=== PATIENT | male | born 1960 | race Caucasian/White ===

== ENCOUNTER → 2018-05-27 13:23 | Outpatient (CLI) | payer MEDICARE | END | disposition home or self-care (01) | LOC: D.MRI 13:23 | DX: M54.5 Low back pain (principal) ==

== ENCOUNTER → 2018-07-01 09:20 | Outpatient (CLI) | payer MEDICARE | END | disposition home or self-care (01) | LOC: D.US 09:20 | DX: E03.9 Hypothyroidism, unspecified (principal) ==

== ENCOUNTER → 2018-08-19 09:20 | Outpatient (CLI) | payer MEDICARE | END | disposition home or self-care (01) | LOC: D.US 08-13 11:30 | DX: I12.9 Hypertensive chronic kidney disease with stage 1 through stage 4 chronic kidney disease, or unspecified chronic kidney disease (principal); N18.3 Chronic kidney disease, stage 3 (moderate); I48.2 Chronic atrial fibrillation; Z68.31 Body mass index [BMI] 31.0-31.9, adult ==

== ENCOUNTER → 2019-05-09 12:44 | Outpatient (CLI) | payer MEDICARE ==
--- NOTE | 2019-05-12 15:03 | EC ---
PATIENT:BETHEL PENNINGTON DATE OF SERVICE: 05/09/19 SEX: M MEDICAL RECORD: [id number] DATE OF : 56 [facility] AGE OF PATIENT: 58 ADMISSION DATE: 05/09/19 REFERRING PHYSICIAN: INTERPRETING PHYSICIAN: SHAHID MEDINA MD ECHOCARDIOGRAM REPORT ECHO CHARGES 4 ECHO COMPLETE Date: 05/09/19 CLINICAL DIAGNOSIS: H/O A-FIB/HTN ECHOCARDIOGRAPHIC MEASUREMENTS (adult normal given) AC root (d.<3.7cm) 3.0 cm LV Septum d (<1.2 cm> 1.1 cm Valve Excursion 1.9 cm LV Septum (systole) 1.6 cm Left Atria (s.<4.0cm> 4.4 cm LVPW d(<1.2cm) 1.2 cm RV (d.<2.3cm) 2.6 cm LVPW (sytole) 1.7 cm LV diastole(<5.6CM) 5.0 cm MV E-F(>70mm/sec) cm LV systole 2.8 cm LVOT Diameter 1.9 cm MV exc.(>10mm) cm Est.ejection fraction (50-75%) % DOPPLER: LVIT cm/sec A 43.0 cm/sec E 63.0 cm/sec LA cm/sec RVSP 17.4 mmHg LVOT 112 cm/sec AOP1/2T m/s Asc. Ao 115 cm/sec RVOT 57.0 cm/sec RA cm/sec PA 100 cm/sec AV Gradient Peak 5.3 mmHg AV Mean 2.5 mmHg AV Area 2.8 cm MV Gradient Peak 1.9 mmHg MV Mean 0.51 mmHg MV Area cm COMMENTS: OP - HC Compensator Worker: 1 GRAHAM HAJA [place] Seamer: 3 Dr. Paris TAPE# PACS Pericardial Effusion N DATE OF SERVICE: Adequate 2D, color flow, spectral Doppler, and M-Mode. No LVH. LV internal dimension is normal. Wall motion is normal. EF is greater than or equal to 55%. Aortic valve is tricuspid. No evidence of stenosis by Doppler interrogation. Left atrium mildly dilated at 4.4 cm. Mitral valve shows no prolapse. Trace MR. Right-sided chambers are grossly normal. Trace TR. TRANSINT:[id number] Voice Confirmation ID: [id number] DOCUMENT ID: [id number] ECHOCARDIOGRAM REPORT [id number] BETHEL PENNINGTON,SHAHID Guerrero MD at 1503 CC: [id number] DICTATION DATE: 05/12/19 1246 TRAINING AND DEVELOPMENT COORDINATOR: 05/12/19 1259 [facility]P CLI 05/09/19 [place] [id number] [place] [id number]
== END | disposition home or self-care (01) ==
LOC: D.HCCARDIO 12:44
PROVIDERS: ATTEND Internal Medicine Interventional Cardiology
DX: I48.91 Unspecified atrial fibrillation (principal)

== ENCOUNTER → 2019-12-04 09:28 | Outpatient (CLI) | payer MEDICARE ==
--- NOTE | ~2019-12-04 | ST ---
PATIENT:BETHEL PENNINGTON MEDICAL RECORD: [id number] SEX: M LOCATION:[facility] ORDER #: ADMISSION DATE: 12/04/19 AGE OF PATIENT: 59 REFERRING PHYSICIAN: INTERPRETING PHYSICIAN: LLOYD MELCHOR MD DATE OF SERVICE: 12/04/2019 PROCEDURE: Nuclear stress test. INDICATION: Angina, hypertension, hyperlipidemia, atrial fibrillation. TECHNIQUE: He was exercised on standard Lexiscan protocol with 33 mCi of sestamibi injected at peak stress, 11 mCi used previously for rest images. FINDINGS: Gated SPECT reveals preserved ejection fraction at 69% with good wall motion and thickening and brightening throughout all segments. SPECT imaging: Cardiolite was used as myocardial perfusion agent. There are perfusion defects anteroapically as well as laterally. These appear to be mixed, partially fixed, partially reversible. The degree of reversibility is mild. The amount of myocardium involved between the 2 defects is very large. OVERALL IMPRESSION: This is an intermediate risk abnormal nuclear stress test, mild reversibility throughout the anterior, apical and lateral segments. Gated SPECT reveals a preserved ejection fraction at 69%. Current scan does suggest the presence of hemodynamically significant coronary artery disease. TRANSINT:[id number] Voice Confirmation ID: [id number] DOCUMENT ID: [id number] LLOYD MELCHOR MD CC: [id number] DICTATION DATE: 12/05/19 1440 HOP TRAINER: 12/06/19 0815 [facility] CLI 12/04/19 [place] [id number] [place] [id number]
[~2019-12-04 09:28] MED LIST: AMIODARONE HCL200 MG PO; LOW DOSE ASPIRI81 M1 PO; NP THYROID30 MG PO; PLAVIX75 MG PO; TOPROL XL200 MG PO; XARELTO20 MG PO; ZOCOR10 MG PO
--- NOTE | 2019-12-05 08:49 | EC ---
PATIENT:BETHEL PENNINGTON DATE OF SERVICE: 12/04/19 SEX: M MEDICAL RECORD: [id number] DATE OF : 56 [facility] AGE OF PATIENT: 58 ADMISSION DATE: 12/04/19 REFERRING PHYSICIAN: INTERPRETING PHYSICIAN: SHAHID MEDINA MD ECHOCARDIOGRAM REPORT ECHO CHARGES 4 ECHO COMPLETE Date: 12/04/19 CLINICAL DIAGNOSIS: CHEST PAIN/ATRIAL FIB ECHOCARDIOGRAPHIC MEASUREMENTS (adult normal given) AC root (d.<3.7cm) 3.4 cm LV Septum d (<1.2 cm> 1.5 cm Valve Excursion 1.6 cm LV Septum (systole) 1.8 cm Left Atria (s.<4.0cm> 3.9 cm LVPW d(<1.2cm) 1.6 cm RV (d.<2.3cm) 3.6 cm LVPW (sytole) 2.1 cm LV diastole(<5.6CM) 4.0 cm MV E-F(>70mm/sec) cm LV systole 2.3 cm LVOT Diameter 1.8 cm MV exc.(>10mm) 1.5 cm Est.ejection fraction (50-75%) % DOPPLER: LVIT cm/sec A 56.0 cm/sec E 60.0 cm/sec LA cm/sec RVSP 26 mmHg LVOT 92 cm/sec AOP1/2T m/s Asc. Ao 115 cm/sec RVOT 101 cm/sec RA cm/sec PA 131 cm/sec AV Gradient Peak 2.70 mmHg AV Mean 0.76 mmHg AV Area 2.4 cm MV Gradient Peak 5.25 mmHg MV Mean 2.84 mmHg MV Area cm COMMENTS: Plant Pathologist: 2 ABBY DENNEY Hunter Guide: 3 Dr. Paris TAPE# PACS Pericardial Effusion N DATE OF SERVICE: Adequate 2D, color flow, spectral Doppler, and M-mode. LVH is present. LV internal dimension is normal. Wall motion is normal. EF is greater than or equal to 55%. Aortic valve is sclerotic. No evidence of stenosis by Doppler interrogation. Left atrium is normal at 3.9 cm. Mitral valve shows no prolapse. Trace MR. Right-sided chambers are grossly normal. Trace TR. ECHOCARDIOGRAM REPORT [id number] BETHEL PENNINGTON TRANSINT:[id number] Voice Confirmation ID: [id number] DOCUMENT ID: [id number] SHAHID MEDINA MD at 0849 CC: [id number] DICTATION DATE: 12/04/19 1248 MANAGER FRAUD: 12/04/19 1635 DEP CLI 12/04/19 [place] [id number] [place] [address]
[2019-12-05 17:24] VITALS: BMI 37.3
== END | disposition home or self-care (01) ==
LOC: D.HCCARDIO 09:28
PROVIDERS: ATTEND Internal Medicine Interventional Cardiology
DX: R07.89 Other chest pain (principal); I20.9 Angina pectoris, unspecified

== ENCOUNTER 2019-12-05 10:58 | Inpatient (IN) | payer MEDICARE ==
[~2019-12-05] VITALS: Ht 172.7 cm; Wt 111.4 kg
--- NOTE | ~2019-12-05 | HEMODYNAMI ---
PATIENT:BETHEL PENNINGTON MEDICAL RECORD: [id number] : 56 [facility] D.2117 [facility]# [id number] ADMISSION DATE: 12/05/19 Generatedon:12/05/201916:50 Patient name: BETHEL PENNINGTON Patient #: [id number] SSN: : 1960 Date of study: 12/05/2019 Page: Of Hemodynamic Procedure Report Patient Data Patient Demographics Procedure consent was obtained First Name: BETHEL Gender: Male Last Name: GORGE : 1960 [facility] Initial: ALICE Age: 58 year(s) Patient #: [id number] Race: Unknown Additional ID: [id number] Contact details Address: [address] [place] [address] State: [place] City: [place] Zip code: [address] Admission Admission Data Admission Date: 12/05/2019 Admission Time: 15:12 Room #: D.2117 Lab Results Lab Result Date: 12/05/2019 Lab Result Time: 0:00 Biochemistry Name Units Result Min Max BUN mg/dl 21 --(----)-* 7 18 Creatinine mg/dl 1.7 --(----)-* 0.6 1.3 eGFR ml/min 44 *-(----)-- 90 120 NONAFRICAN CBC Name Units Result Min Max Hematocrit % 42.5 --(*---)-- 42 54 Hemoglobin g/dl 13.5 --(*---)-- 13.5 17.5 Procedure Procedure Types Cath Procedure Diagnostic Procedure LHC LHC w/Coronaries FFR/IVUS FFR Initial FFR Additional Sedation Charges Moderate Sedation up to 30 minutes PCI Procedure Coronary Stent Coronary Stent Initial x2 Procedure Description Procedure Date Procedure Date: 12/05/2019 Procedure Start Time: 16:18 Procedure End Time: 16:45 Procedure Staff Name Function Gagandeep Bell MD Performing Physician Hoang Bailey RT Monitor Zackary Owens RN Nurse Emmie Cherry RT Scrub Cody Luo RN Occupational Safety Specialist Marlene Johnson RT Monitor Procedure Data Cath Procedure Fluoroscopy Diagnostic fluoroscopy Total fluoroscopy Time: 0.4 time: 0.4 min min Diagnostic fluoroscopy Total fluoroscopy dose: 449 dose: 449 mGy mGy Contrast Material Contrast Material Type Amount (ml) Isovue 300 150 Entry Location Entry Primary Successful Side Size Upsize Upsize Entry Closure Maynard ccessful Closure Location (Fr) 1 (Fr) 2 (Fr) Remarks Device Remarks Radial Right 6 Fr Mechanical artery Short Compression Estimated blood loss: 5 ml Diagnostic catheters Device Type Used For End Catheter Placement DIAGNOSTIC [place] 110cm 5 Multi-vessel Fr catheter ([id number]) Angiography Procedure Complications No complications Procedure Medications Medication Administration Route Dosage 0.9% NaCl I.V. 100 ml/hr Oxygen etCO2 Nasal cannula 2 l/min Heparin Flush Bag added to field 2 bags (1000units/500ml NS) Lidocaine 2% added to field 20 Radial Cocktail I.A. 1 syringe (Verapamil 2mg/Nitro 400mcg/Heparin 1500units) Cardizem 10 mg/hr (125mg/125ml NS) Versed I.V. 2 mg Fentanyl I.V. 100 mcg Versed I.V. 1 mg Fentanyl I.V. 50 mcg Lopressor I.V. 5 mg Heparin Bolus I.V. 4000 units Integrilin (Bolus I.V. 10.2 ml 2mg/ml) Plavix P.O. 600 mg Hemodynamics Rest HGB: 13.5 (g/dl) Heart Rate: 110 (bpm) Pressure Samples Time Site Value (mmHg) Purpose Heart Use Rate(bpm) 16:21 LV 46/41,46 Snapshot 99 Snapshots Pre Cath Intra NCS Post Cath Vital Signs Time Heart Resp SPO2 etCO2 NIBP (mmHg) Rhythm Pain Sedation Rate (ipm) (%) (mmHg) Status Level (bpm) 16:09:44 109 18 100 32.7 111/87(103) NSR 0 (11) , 10(A) No pain 16:13:44 117 12 96 19.3 109/83(98) NSR (Missing) 10(A) 16:17:38 119 12 96 29.8 125/97(108) NSR (Missing) 10(A) 16:22:39 111 8 94 26 104/71(88) NSR (Missing) 10(A) 16:26:36 112 10 96 22.3 102/80(99) NSR (Missing) 10(A) 16:30:36 110 11 96 25.3 106/73(88) NSR (Missing) 10(A) 16:34:36 104 13 96 25.3 102/76(86) NSR (Missing) 10(A) 16:38:35 96 12 96 23.8 108/68(88) NSR (Missing) 10(A) 16:42:39 100 13 96 26.1 110/71(88) NSR (Missing) 10(A) Medications Time Medication Route Dose Verified Delivered Reason No cruz Effectiveness by by 16:08:44 0.9% NaCl I.V. 100 Zackary Zackary Per physician ml/hr Roman Owens RN RN 16:08:54 Oxygen etCO2 2 l/min Zackary Zackary for low 02 sats Nasal Lorigan Roman cannula RN RN 16:09:04 Heparin Flush added to 2 bags Zackary Zackary used for Bag field Lorigan Roman procedure (1000units/500ml RN RN NS) 16:09:14 Lidocaine 2% added to 20ml Zackary Zackary for local field vial Lorigan Lorigan anesthetic RN RN 16:09:59 Cardizem I.V. 10 Zackary Zackary for arrhythmia (125mg/125ml NS) drip ( mg/hr Roman Owens infusing RN RN upon arrival) 16:14:28 Versed I.V. 2 mg Gagandeep Buffie for sedation Arabella Luo RN 16:14:34 Fentanyl I.V. 100 mcg Gagandeep Buffie for sedation Arabella Luo RN 16:18:00 Versed I.V. 1 mg Gagandeep Buffie for sedation Arabella Luo RN 16:18:04 Fentanyl I.V. 50 mcg Gagandeep Buffie for sedation Arabella Luo RN 16:20:24 Radial Cocktail I.A. 1 Zackary Gagandeep used for (Verapamil syringe Roman Bell MD procedure 2mg/Nitro RN 400mcg/Heparin 1500units) 16:27:21 Lopressor I.V. 5 mg Zackary Buffie Per physician Roman Luo RN, RN 16:28:52 Heparin Bolus I.V. 4000 Zackary Buffie for ve rified units Roman Luo RN anticoagulation with dr LORAINE bell 16:30:40 Integrilin I.V. 10.2 ml Zackary Buffie for wa sted (Bolus 2mg/ml) Roman Luo RN antiplatelet 9.8 ml RN therapy of vial; 16:44:21 Plavix P.O. 600 mg Zackary Ross for Roman Luo RN antiplatelet RN therapy Procedure Log Time Note 15:33:58 Hoang Bailey RT(R) sent for patient. Start room use. 15:34:00 Time tracking: Regular hours (M-F 7:00 - 5:00) 15:34:04 Plan of Care:Hemodynamics will remain stable., Cardiac rhythm will remain stable., Comfort level will be maintained., Respiratory function will remain adequate., Patient/ family verbilizes understanding of procedure., Procedure tolerated without complication., Recovers from procedure without complications.. 15:57:34 Lab Result : eGFR NONAFRICAN 44 ml/min 15:57:34 Lab Result : Creatinine 1.7 mg/dl 15:57:34 Lab Result : BUN 21 mg/dl 15:57:34 Lab Result : Hematocrit 42.5 % 15:57:34 Lab Result : Hemoglobin 13.5 g/dl 15:57:46 Patient received from ED to CCL 3 Alert and oriented. Tansferred to table in Supine position. 15:59:26 Signed procedure consent form obtained from patient. 15:59:26 Warm blankets applied, and dewayne hugger turned on for patient comfort. 15:59:27 Correct patient and procedure confirmed by team. 15:59:28 ECG and BP/O2 sat monitors applied to patient. 16:08:35 Baseline sample Acquired. 16:08:35 Vital chart was started 16:08:39 Rhythm: atrial fibrillation 16:08:41 Full Disclosure recording started 16:08:44 0.9% NaCl 100 ml/hr I.V. was administered by Zackary Owens RN; Per physician; Verbal order read back and verified. 16:08:54 Oxygen 2 l/min etCO2 Nasal cannula was administered by Zackary Owens RN; for low 02 sats; Verbal order read back and verified. 16:08:54 H&P Date Dictated: 12/05/2019 Emergent; H&P N/A. 16:08:54 Pre-procedure instructions explained to patient. 16:08:55 Pre-op teaching completed and patient verbalized understanding. 16:08:57 Family in patients room. 16:08:59 Patient NPO since Midnight. 16:09:00 Is the patient allergic to Iodine/contrast media? No. 16:09:01 Is patient on blood thinner?Yes 16:09:04 Heparin Flush Bag (1000units/500ml NS) 2 bags added to field was administered by Zackary Owens RN; used for procedure; Verbal order read back and verified. 16:09:04 ACC The patient was administered the following blood thiners within the last 24 hours: Xarelto 16:09:14 Lidocaine 2% 20ml vial added to field was administered by Zackary Owens RN; for local anesthetic; Verbal order read back and verified. 16:09:14 Patient diabetic? No. 16:09:16 Previous problem with sedation/anesthesia? No ? 16:09:18 Snore? Yes 16:09:20 Sleep apnea? No 16:09:21 Deviated septum? No 16:09:21 Opens mouth fully? Yes 16:09:23 Sticks out tongue? Yes 16:09:27 Airway obstruction? No ? 16:09:29 Dentures? No ? 16:09:31 Pre procedure: right dorsailis pedis pulse 1+ Palpable, but thready & weak; easily obliterated 16:09:33 Modified Chino's test Ulnar < 7 seconds 16:09:42 IV patent on arrival in right forearm with 0.9% NaCl at O. 16:09:44 Patient pain scale 0/10 ?. 16:09:47 Lab results completed and on chart. 16:09:52 Right Radial & Right Groin area was prepped with chlora-prep and draped in sterile fashion 16:09:54 Alarms reviewed by R. N. 16:09:54 Sharps counted by scrub and verified by R.N. 16:09:59 Cardizem (125mg/125ml NS) 10 mg/hr I.V. drip ( infusing upon arrival) was administered by Zackary Owens RN; for arrhythmia; Verbal order read back and verified. 16:11:49 Risk of Mortality: 0.1 16:11:52 Risk of blood transfusion: 1.6 16:11:55 Risk of RANDY: 2.7 16:12:20 Use device set Radial Dx or PCI 16:12:22 ACIST Syringe (78216) opened to sterile field. 16:12:22 Medline Cath Pack ([id number]) opened to sterile field. 16:12:23 Bag Decanter (2001S) opened to sterile field. 16:12:23 ACIST Hand Control (68546) opened to sterile field. 16:12:24 ACIST Manifold (69117) opened to sterile field. 16:12:24 Tegaderm 4 x 4 (1626W) opened to sterile field. 16:12:25 MBrace Wrist Support ([id number]) opened to sterile field. 16:12:26 EMERALD Guide Wire (504-190) opened to sterile field. 16:12:27 SHEATH 6FR RAIN (7166732) opened to sterile field. 16:13:29 Physician arrived 16:13:30 --------ALL STOP TIME OUT------ 16:13:30 Final Timeout: patient, procedure, and site verified with staff and physician. All members of the team are in agreement. 16:13:34 Right Radial & Right Groin site verified by team. 16:13:37 Fire Safety Assessment: A--An alcohol-based skin anteseptic being used preoperatively., C--Open oxygen or nitrous oxide is being used., D--An ESU, laser, or fiber-optic light is being used. 16:13:40 Physical assessment completed. ASA score P 2 - A patient with mild systemic disease as per Gagandeep Bell MD. 16:13:54 3b) 30-44 Moderately reduced kidney function. 16:14:07 Maximum allowable contrast dose (3.7 X eGFR X 0.75)122 ml. 16:14:14 Sedation plan: IV Moderate Sedation Medication:Versed, Fentanyl 16:14:28 Versed 2 mg I.V. was administered by Cody Luo RN; for sedation; Verbal order read back and verified. 16:14:34 Fentanyl 100 mcg I.V. was administered by Cody Luo RN; for sedation; Verbal order read back and verified. 16:16:01 Zero performed for pressure channel P1 16:16:14 Zero performed for pressure channel P1 16:16:23 Zero performed for pressure channel P1 16:17:16 Zero performed for pressure channel P1 16:17:40 Zero performed for pressure channel P1 16:17:58 Procedure started. 16:18:00 Versed 1 mg I.V. was administered by Cody Luo RN; for sedation; Verbal order read back and verified. 16:18:02 Local anesthetic to right radial artery with Lidocaine 2% by Gagandeep Bell MD.INITIAL ACCESS ONLY 16:18:04 Fentanyl 50 mcg I.V. was administered by Cody Luo RN; for sedation; Verbal order read back and verified. 16:18:14 A 6 Fr Short sheath was inserted into the Right Radial artery 16:19:13 A DIAGNOSTIC [place] 110cm 5 Fr catheter ([id number]) was advanced over the wire and used for Multi-vessel Angiography. 16:20:24 Radial Cocktail (Verapamil 2mg/Nitro 400mcg/Heparin 1500units) 1 syringe I.A. was administered by Gagandeep Bell MD; used for procedure; Verbal order read back and verified. 16:21:02 LV hemodynamics recorded. 16:21:04 LV gram done using ARNOLD 16:21:06 Injector settings: Ml/sec: 5, Volume: 15, 16:21:12 EF : 60 % 16:21:23 LCA angiography performed. 16:21:26 Injector settings: Ml/sec: 3, Volume: 6, 16:22:05 RCA angiography performed. 16:22:10 Injector settings: Ml/sec: 3, Volume: 6, 16:22:34 INFLATOR Merit BasixCompak (RJ2305) opened to sterile field. 16:22:34 Nimitz Verrata Plus pressure wire (38098H) opened to sterile field. 16:22:35 GUIDE 6FR XBLAD 3.5 catheter ([id number]) opened to sterile field. 16:23:09 Catheter removed. 16:23:20 GUIDE 6FR AR 1.0 SH catheter ([id number]) opened to sterile field. 16:23:27 Proceeding to intervention. 16:23:30 ACC Pre-intervention ELADIO Flow is 3. 16:23:37 6 Fr XBLAD 3.5 guide catheter was inserted over the wire 16:24:49 FFR/IFR wire advanced. 16:24:51 Baseline FFR 1. 16:25:49 Wire advanced across lesion. 16:26:55 mLAD lesion measured at 0.78 with IFR 16:27:21 Lopressor 5 mg I.V. was administered by Cody Luo RN; Per physician; Verbal order read back and verified. 16:28:52 Heparin Bolus 4000 units I.V. was administered by Cody Luo RN; for anticoagulation; verified with dr bell Verbal order read back and verified. 16:29:28 Place stent Inflation Number: 1 A RICHARD RX 2.5 x 12 stent ([id number]) was prepped and advanced across the Mid LAD 80. The stent was deployed at 9 MARCELINO for 0:10 (min:sec) 0. 16:30:04 Stent catheter was removed intact over wire. 16:30:40 Integrilin (Bolus 2mg/ml) 10.2 ml I.V. was administered by Cody Luo RN; for antiplatelet therapy; wasted 9.8 ml of vial; Verbal order read back and verified. 16:31:01 Place stent Inflation Number: 2 A RICHARD RX 2.75 x 22 stent ([id number]) was prepped and advanced across the Mid LAD 80. The stent was deployed at 11 MARCELINO for 0:10 (min:sec) 0. 16:31:46 Stent catheter was removed intact over wire. 16:31:47 Wire removed. 16:31:47 Guide catheter removed. 16:31:55 6 Fr AR 2 SH guide catheter was inserted over the wire 16:32:38 FFR/IFR wire advanced. 16:32:40 Baseline FFR 1. 16:35:47 mRCA lesion measured at 0.73 with IFR 16:37:44 Place stent Inflation Number: 1 A RICHARD RX 3.0 x 30 stent ([id number]) was prepped and advanced across the Mid RCA 70. The stent was deployed at 13 MARCELINO for 0:10 (min:sec) 0. 16:39:27 Stent catheter was removed intact over wire. 16:39:28 Wire removed. 16:39:28 Guide catheter removed. 16:39:32 ZEPHYR REGULAR TR BAND (287111) opened to sterile field. 16:39:39 Sheath removed intact; hemostasis achieved with Mechanical Compression to the Right Radial artery. 16:39:46 Procedure ended.(Physican Out) 16:43:07 Fluoroscopy time 00.40 minutes. 16:43:12 Fluoroscopy dose: 449 mGy 16:43:12 Flurop Dose total: 449 16:43:20 Dose Area Product 69018 mGy/cm. 16:44:21 Plavix 600 mg P.O. was administered by Cody Luo RN; for antiplatelet therapy; Verbal order read back and verified. 16:44:26 Contrast amount:Isovue 300 150ml. 16:44:29 Maximum allowable dose exceeded? No. 16:44:30 Sharps counted by scrub and verified by R.N. 16:44:34 Ragland band inflated with 10cc of air. 16:44:35 Insertion/operative site no bleeding no hematoma. 16:44:45 Post right radial artery:stable 16:44:47 Post Procedure Pulses reassessed and unchanged 16:44:50 Post procedure rhythm: unchanged. 16:44:53 Estimated blood loss: 5 ml 16:45:01 Post procedure instruction explained to patient.Patient verbalizes understanding. 16:45:01 Patient needs reinforcement of post procedure teaching. 16:45:20 ACT drawn and resulted at 327 seconds. (normal therapeutic range 180-240 seconds). 16:45:28 Procedure type changed to Cath procedure, Diagnostic procedure, LHC, [facility] w/Coronaries, FFR/IVUS, FFR Initial, FFR Additional, Sedation Charges, Moderate Sedation up to 30 minutes, PCI procedure, Coronary Stent, Coronary Stent Initial x2 16:45:30 Procedure and supply charges have been captured, reviewed, submitted and are correct. 16:45:37 Procedure Complication : No complications 16:45:40 Vital chart was stopped 16:45:42 [facility] Findings: MVD- PCI performed (see procedure note) 16:45:44 Operative report dictated upon procedure completion. 16:45:44 See physician's report for complete and final results. 16:45:48 Report given to [facility]. 16:45:50 Patient transfered to [facility] with Stretcher. 16:45:52 Procedure ended. 16:45:52 Full Disclosure recording stopped 16:45:59 ACC-PCI Only Patient was given prescriptions, or instructed by Gagandeep Bell MD to start/continue the following medications upon discharge: Plavix 16:46:01 End room use (Document Last) Intervention Summary Intervention Notes Time ActionType Lesion and Equipment Used Action# Pressure Duration Attributes 16:29:28 Place stent Mid LAD RICHARD RX 2.5 x 1 9 00:10 12 stent ([id number]) 16:31:01 Place stent Mid LAD RICHARD RX 2.75 x 2 11 00:10 22 stent ([id number]) 16:37:44 Place stent Mid RCA RICHARD RX 3.0 x 1 13 00:10 30 stent ([id number]) Device Usage Item Name Manufacture Quantity Catalog Hospital Part Current Minimal Lot# / Number Charge Number Stock Stock Serial# Code ACIST Syringe Acist 1 55235 817674 890647 754672 20 (38585) Medical Systems Inc Medline Cath Medline 1 [id number] 192066 69658 457331 5 Pack ([id number]) Bag Decanter Microtek 1 2001S 647570 88978 423149 5 (2001S) Medical Inc. ACIST Hand Acist 1 28970 600861 985804 173100 5 Control Medical (01743) Systems Inc ACIST Manifold Acist 1 16316 416147 308437 222848 5 (71084) Medical Systems Inc Tegaderm 4 x 4 3M 1 1626W 267492 151405 466770 5 (1626W) MBrace Wrist Advanced 1 140-0250-00 556594 94499 843083 5 Support Vascular ([id number]) Dynamics EMERALD Guide Cardinal 1 502-455 945170 947343 044112 5 Wire (502-455) Health SHEATH 6FR Cardinal 1 3146158 691694 0289853 974903 5 RAIN (2083629) Health DIAGNOSTIC Terumo 1 40-6123 444932 515390 508077 5 [place] 110cm 5 Fr catheter (887769) INFLATOR Merit Merit 1 PJ6209 851625 412746 601023 15 [employer] Medical (OI4041) Nimitz Nimitz 1 41373T 973460 378311156 629136 5 Verrata Plus pressure wire (31791D) GUIDE 6FR Cardinal 1 04645851 148842 596299 052457 10 XBLAD 3.5 Health catheter (98443188) GUIDE 6FR AR Medtronic 1 [id number] 367769 38552 689613 1 1.0 SH catheter ([id number]) RICHARD RX 2.5 x Medtronic 1 [id number] 915069 3083783 233462 5 [id number] 12 stent ([id number]) RICHARD RX 2.75 x Medtronic 1 [id number] 636431 6304409 900323 5 [id number] 22 stent ([id number]) RICHARD RX 3.0 x Medtronic 1 [id number] 034199 3006117 319295 5 [id number] 30 stent ([id number]) ZEPHYR REGULAR Cardinal 1 325998 975064 1839029 750248 5 [facility] (843220) Signature Audit [place] Stage Time Signature Unsigned Intra-Procedure 12/05/2019 Marlene Johnson 4:46:34 PM RT(R) Intra-Procedure 12/05/2019 Cody Luo RN 4:48:29 PM Intra-Procedure 12/05/2019 Gagandeep Bell 4:50:11 PM [facility] [address] [place] [address]
--- NOTE | ~2019-12-05 | OP ---
PATIENT NAME: BETHEL PENNINGTON MEDICAL RECORD: [id number] :56 LOCATION:D.M2 D.2117 ADMISSION DATE:12/05/19 SURGEON: LLOYD MELCHOR MD DATE OF OPERATION: 12/05/2019 PROCEDURES: 1. PTCA stent LAD. 2. PTCA stent RCA. 3. IFR LAD. 4. IFR RCA. 5. Left heart catheterization. 6. Selective coronary angiography. 7. Left ventriculogram. INDICATION: Angina and coronary artery disease. PROCEDURE IN DETAIL: After informed consent was obtained and after a detailed description of risks, benefits as well as alternative therapies, the patient elected to proceed with angiogram and angioplasty. The right radial area was prepped and draped in normal sterile fashion. Right radial artery was cannulated via modified Seldinger technique with placement of 6-Czech sheath. All catheters exchanged through this sheath. FINDINGS: The left ventriculogram was performed in standard 30-degree ARNOLD view reveals preserved cardiac wall motion, ejection fraction 50% to 55%. SELECTIVE CORONARY ANGIOGRAPHY: 1. Left main is with no significant angiographic disease. 2. Left anterior descending has 2 areas of 70% stenosis and the IFR is abnormal. 3. Left circumflex has moderate irregularities, but no flow-limiting stenosis. 4. Right coronary has 70% stenosis in mid vessel and IFR was abnormal throughout. PTCA STENT OF THE LAD: The stent used was a 2.5 x 22 and 2.5 x 12 both Armin stents. Result was 0% residual stenosis throughout. PTCA STENT OF THE RCA: The stent used was a 3.0 x 30 mm [place]. Result was 0% residual stenosis and IFR normalized after the procedure. OVERALL IMPRESSION: Successful percutaneous transluminal coronary angioplasty stent of the left anterior descending and right coronary artery, both going from 70% initial stenosis to 0% residual. TRANSINT:[id number] Voice Confirmation ID: [id number] DOCUMENT ID: [id number] LLOYD MELCHOR MD CC: [id number] DICTATION DATE: 12/05/19 1643 METER REPAIRER HELPER: 12/05/19 2346 ADM IN [facility] [address] [place] [address]
[2019-12-05 11:19] LABS: BASOPHILS 0.2 % (0-2); EOSINOPHILS 3.9 % (0-7); HEMATOCRIT 42.5 % (42.0-54.0); HEMOGLOBIN 13.5 g/dL (13.5-17.5); IMMATURE GRANULOCYTES 0.1 % (0-5); LYMPHOCYTES 26.4 % (15-50); MCH 25.4 pg (26.0-34.0); MCHC 31.8 g/dL (31.0-37.0); MCV 79.9 fL (80.0-100.0); MEAN PLATELET VOLUME 11.6 fL (7.4-10.4); MONOCYTES 15.1 % (2-11); NEUTROPHILS 54.3 % (40-80); PLATELET COUNT 221 10x3/uL (130-400); RBC 5.32 10x6/uL (4.20-6.10); RDW 15.3 % (11.5-14.5); WBC 8.6 10x3/uL (4.8-10.8)
[2019-12-05 11:27] LABS: CALC OSMOLALITY 283 mosm/kg (275-300); CHLORIDE - SERUM 107 mmol/L (98-107); CREATININE - SERUM 1.7 mg/dL (0.6-1.3); POTASSIUM - SERUM 4.7 mmol/L (3.5-5.1); SODIUM 142 mmol/L (136-145); UREA NITROGEN 21 mg/dL (7-18); eGFR NON AFRICAN AMERICAN 44 mL/min (90-120)
[2019-12-05 11:28] LABS: APTT 43.9 SECONDS (22.8-39.4); GLUCOSE 70 mg/dL (74-106); INR 2.65 (0.85-1.17); PROTIME 27.8 SECONDS (11.6-15.0)
[2019-12-05 11:45] LABS: ALBUMIN 3.7 g/dL (3.4-5.0); ALKALINE PHOSPHATASE 90 U/L (46-116); ALT (SGPT) 85 U/L (10-68); BILIRUBIN - TOTAL 0.47 mg/dL (0.2-1.3); CKMB 0.7 U/L (0.0-3.6); CREATINE KINASE 90 UL (21-232); MAGNESIUM - SERUM 2.2 mg/dL (1.8-2.4); PROTEIN - SERUM 7.3 g/dL (6.4-8.2); TROPONIN-I < 0.017 ng/mL (0.000-0.060)
--- NOTE | 2019-12-05 13:20 | NUR ---
ASSUMED CARE OF PATIENT, CONSENT FORMS SIGNED BY PATIENTS . PATIENT RESTING ON STRETCHER NO C/O PAIN AT THIS TIME. MONITOR SHOWS A-FIB MD AWARE, PATIENT WAITING TO GO TO [place] [employer]ACHINE [employer]END[facility], CALL LIGHT WITHIN REACH, DENIES PAIN AT THIS TIME.
[2019-12-05 13:22] VITALS: BP 111/78
[2019-12-05 13:55] VITALS: BP 107/77
--- NOTE | 2019-12-05 13:57 | NUR ---
PATIENT SITTING UP ON STRETCHER, MONITOR SHOWS A-FIB, DENIES PAIN AT THIS TIME. NO COMPLAINTS.
[2019-12-05 14:35] VITALS: BP 108/72
--- NOTE | 2019-12-05 15:24 | MORECARE ---
CASE MANAGEMENT DISCHARGE SUMMARY PATIENT: BETHEL ADAM UNIT: [id number] ADM DATE: 12/05/19 AGE: 58 : 56 SEX: M ROOM/BED: D.7361 AUTHOR: LUCA CARMICHAEL PHYSICIAN: REFERRING PHYSICIAN: LLOYD MELCHOR MD DATE OF SERVICE: 12/05/19 Discharge Plan Patient Name: BETHEL ADAM Facility: [facility]:[place] : 1960 Planned Disposition: Home Anticipated Discharge Date: Discharge Date: Expected LOS: Initial Reviewer: [email or web address] Initial Review Date: 12/05/2019 Generated: 12/05/19 4:24 pm Comments DCP- Discharge Planning Updated by [email or web address]: Theodora Hughes on 12/05/19 2:[address] CM met with patient to discuss initial discharge planning. Patient is in agreement to proceed with the assessment with his , Janet present. Verified patient's address and telephone number. Patient is alert/oriented. Stairs/steps: 2 w/rails. PCP: Dr. Maza. Pharmacy: [facility]. Patient states they have been able to obtain all of their prescribed medications. Patient lives with spouse. HHS: None. DME: None. Patient gives permission to speak with family members/care givers. Emergency contact: Janet Adam [phone]. Patient is Independent with all ADL's, medication management. CM discussed the availability of HH, Rehab, DME services. Patient denies the need for additional services at this time and feels safe returning to previous environment. Patient denies being hospitalized within the past 30 days. Patient denies the use of community resources RESTAURANT AREA MANAGER. Transportation at time of discharge: Janet Adam. CM will assist PRN with any additional DC needs. DCPIA - Discharge Planning Initial Assessment Updated by [email or web address]: Theodora Hughes on 12/05/19 3:20 pm * Is the patient Alert and Oriented? Yes * How many steps to enter\exit or inside your home? 2 w/rails * PCP Dr. Maza * Pharmacy [facility] * Preadmission Environment Home with Family * ADLs Independent * Equipment None * Other Equipment None * List name and contact numbers for known caregivers / representatives who currently or will assist patient after discharge: Janet Adam [phone] * Verbal permission to speak to the caregivers and representatives has been obtained from the patient. Yes * Community resources currently utilized None * Please name any agencies selected above. None * Additional services required to return to the preadmission environment? No * Can the patient safely return to the preadmission environment? Yes * Has this patient been hospitalized within the prior 30 days at any hospital? No Patient Name: BETHEL ADAM Page [id number] at 1524 All edits/amendments must be made on the electronic document DICTATION DATE: 12/05/191523 PRINCIPAL PRODUCT MANAGER: MARIANA 12/05/191523 RPT#: [id number] DC DATE: STATUS: ADM IN [facility] [address] [place] [address] END OF REPORT
--- NOTE | 2019-12-05 15:50 | NUR ---
CRISTIN FROM [facility] HERE TO TAKE PATIENT, CALLED MED UNIT TO INFORM THEM THAT THE PATIENT WILL BE GOING TO [facility] PRIOR TO COMING TO THE FLOOR.
--- NOTE | 2019-12-05 16:44 | HP ---
PATIENT: BETHEL ADAM MEDICAL RECORD: [id number] ACCOUNT: [id number] LOCATION:[address] : 56 ADMISSION DATE: 12/05/19 PCP: JOSE ALBERTO ROMERO DO HISTORY AND PHYSICAL EXAMINATION DIAGNOSES: 1. Unstable angina. 2. Abnormal nuclear stress test. 3. Hyperlipidemia. 4. Atrial fibrillation. 5. Shortness of breath, dyspnea on exertion. 6. Hypertension. HISTORY OF PRESENT ILLNESS: Mr. Adam presents with severe chest pain, it came on him when he was getting ready for work today. He has been having episodes of chest pain. He underwent stress testing with Cardiolite imaging yesterday. Looking at the stress test, there is perfusion defect anteroapically as well as laterally suggestive of multivessel coronary artery disease. He has no history of ischemic heart disease. He continues to have chest discomfort. His EKG is atrial fibrillation, which is not new. No acute ST-T abnormalities. Unifocal PVCs. PHYSICAL EXAMINATION: CONSTITUTIONAL/GENERAL APPEARANCE: Well nourished, well developed, appears stated age. EYES: Lids and conjunctivae noninjected. No discharge. No pallor. ENT: Lips within normal limit. No cyanosis. No pallor. NECK: Carotid arteries, bilateral normal upstroke. No bruits. No thrills. No jugular venous pressure or distention. CERVICAL LYMPH NODES: Nontender. Nonenlarged. THYROID: Not enlarged. No nodules. CARDIOVASCULAR: Precordial exam, nondisplaced. No heaves or pericardial thrills. Rate and rhythm, regular. Heart sounds, normal S1, normal S2. No S3, no gallop, no rub. Systolic murmur, not heard. Diastolic murmur, not heard. RESPIRATORY: Respiratory effort, unlabored. Normal curvature. No thoracic deformity. No chest wall tenderness. Percussion, resonant. Auscultation, clear. No wheezes, no rales, no rhonchi. ABDOMEN: Soft, nondistended, nontender. No abdominal pain, no vomiting and normal appetite. MUSCULOSKELETAL: No joint tenderness, normal gait, normal tone. SKIN: Warm and dry. OVERALL IMPRESSION: Anginal chest discomfort, abnormal nuclear stress test. At this time, we will slow his heart rate down. Optimize medications. Proceed with coronary angiography in the near future. TRANSINT:[id number] Voice Confirmation ID: [id number] DOCUMENT ID: [id number] HISTORY AND PHYSICAL [id number] BETHEL ADAM, LLOYD RIVERA at 1644 CC: [id number] DICTATION DATE: 12/05/19 1238 HEALTH TYPE TECHNICIAN: 12/05/19 1441 ADM IN [place] [id number] [place] [address]
[2019-12-05] MEDS ORDERED: ZOCOR10 MG PO (17:07)
[2019-12-05] MEDS ORDERED: AMIODARONE HCL200 MG PO (17:08)
[2019-12-05] MEDS ORDERED: XARELTO20 MG PO (17:08)
[2019-12-05] MEDS ORDERED: NP THYROID30 MG PO (17:09)
[2019-12-05] MEDS ORDERED: TOPROL XL200 MG PO (17:09)
[2019-12-05 17:24] VITALS: BP 102/71; Ht 172.7 cm; Wt 111.4 kg
--- NOTE | 2019-12-05 19:30 | NUR ---
REPORT AND INITIAL ROUNDS COMPLETED. RIGHT WRIST WITH TR BAND AND BRACE IN PLACE. INSTRUCTED TO LEAVE BAND IN PLACE X 1 EXTRA HOUR. PT ALERT/VOICING NO NEEDS. CPOC.
[2019-12-05 20:00] VITALS: BP 104/72
--- NOTE | 2019-12-05 21:00 | NUR ---
TR BAND HAS NOW BEEN REMOVED AND DRESSING TO INCISION SITE APPLIED. NO BLEEDING/BRUISING OR SWELLING NOTED. PT REPORTS OF PAIN OR DISCOMFORT. CAF PER TELEMETRY. IV CARDIZEM DRIP INFUSING AT 10ML/HR. CPOC.
[2019-12-06] VITALS: BP 104/72
--- NOTE | 2019-12-06 00:05 | NUR ---
CAF 40'S. REDUCED CARDIZEM DRIP TO 5ML/HR AND WILL MONITOR. PT RESTING. NO DISTRESS.
[2019-12-06 04:00] VITALS: BP 98/50
[2019-12-06 06:12] LABS: BASOPHILS 0.3 % (0-2); EOSINOPHILS 4.9 % (0-7); HEMATOCRIT 39.2 % (42.0-54.0); HEMOGLOBIN 12.4 g/dL (13.5-17.5); IMMATURE GRANULOCYTES 0.3 % (0-5); LYMPHOCYTES 25.1 % (15-50); MCH 25.1 pg (26.0-34.0); MCHC 31.6 g/dL (31.0-37.0); MCV 79.4 fL (80.0-100.0); MEAN PLATELET VOLUME 11.2 fL (7.4-10.4); MONOCYTES 12.1 % (2-11); NEUTROPHILS 57.3 % (40-80); RBC 4.94 10x6/uL (4.20-6.10); RDW 15.4 % (11.5-14.5); WBC 7.7 10x3/uL (4.8-10.8)
[2019-12-06 06:36] LABS: PLATELET COUNT 169 10x3/uL (130-400)
[2019-12-06 06:50] LABS: ALBUMIN 3.1 g/dL (3.4-5.0); ALKALINE PHOSPHATASE 75 U/L (46-116); ALT (SGPT) 67 U/L (10-68); BILIRUBIN - TOTAL 0.65 mg/dL (0.2-1.3); CALC OSMOLALITY 278 mosm/kg (275-300); CALCIUM 8.6 mg/dL (8.5-10.1); CARBON DIOXIDE 24.5 mmol/L (21.0-32.0); CHLORIDE - SERUM 106 mmol/L (98-107); CKMB 0.7 U/L (0.0-3.6); CREATINE KINASE 51 UL (21-232); CREATININE - SERUM 1.5 mg/dL (0.6-1.3); GLUCOSE 83 mg/dL (74-106); POTASSIUM - SERUM 4.5 mmol/L (3.5-5.1); PROTEIN - SERUM 6.2 g/dL (6.4-8.2); SODIUM 139 mmol/L (136-145); TROPONIN-I < 0.017 ng/mL (0.000-0.060); UREA NITROGEN 18 mg/dL (7-18); eGFR NON AFRICAN AMERICAN 51 mL/min (90-120)
--- NOTE | 2019-12-06 07:15 | NUR ---
RECEIVED PT IN BED AAOX4 RESP UNLABORED SKIN W/D COLOR WNL NAD NOTED
--- NOTE | 2019-12-06 08:56 | NUR ---
OFFERED PT FLU SHOT. HE DECLINED.
[2019-12-06 09:02] VITALS: BP 97/56
[2019-12-06] MEDS ORDERED: PLAVIX75 MG PO (09:03)
[2019-12-06] MEDS ORDERED: LOW DOSE ASPIRI81 M1 PO (09:04)
--- NOTE | 2019-12-06 09:04 | NUR ---
PER DR MEDINA PT IS TO TAKE ASPIRIN 81 MG/DAY AT DISCHARGE, IN ADDITION TO XARELTO AND PLAVIX.
--- NOTE | 2019-12-06 11:15 | NUR ---
PT LEFT UNIT AT THIS TIME
--- NOTE | 2019-12-06 11:45 | NUR ---
REVIEWED DISCHARGE INSTRUCTIONS WITH PT STATES UNDERSTANDING COPY GIVEN DCD SALINE LOCK TO RFA WITH IV CATHETER INTACT SITE FREE OF REDNESS OR EDEMA PT DISCHARGED HOME IN STABLE DONDITION WITH ALL PERSONAL BELONGINGS LEFT UNIT VIA W/C
--- NOTE | 2019-12-06 12:03 | MORECARE ---
CASE MANAGEMENT DISCHARGE SUMMARY PATIENT: BETHEL ADAM UNIT: [id number] ADM DATE: 12/05/19 AGE: 58 : 56 SEX: M ROOM/BED: D.7768 AUTHOR: LUCA CARMICHAEL PHYSICIAN: REFERRING PHYSICIAN: LLOYD MELCHOR MD DATE OF SERVICE: 12/06/19 Discharge Plan Patient Name: BETHEL ADAM Facility: [facility]:[place] : 1960 Planned Disposition: Home Anticipated Discharge Date: Discharge Date: Expected LOS: Initial Reviewer: [email or web address] Initial Review Date: 12/05/2019 Generated: 12/06/19 1:02 pm DCP- Discharge Planning Updated by [email or web address]: Theodora Hughes on 12/05/19 2:[address] CM met with patient to discuss initial discharge planning. Patient is in agreement to proceed with the assessment with his , Janet present. Verified patient's address and telephone number. Patient is alert/oriented. Stairs/steps: 2 w/rails. PCP: Dr. Maza. Pharmacy: [facility]. Patient states they have been able to obtain all of their prescribed medications. Patient lives with spouse. HHS: None. DME: None. Patient gives permission to speak with family members/care givers. Emergency contact: Janet Adam [phone]. Patient is Independent with all ADL's, medication management. CM discussed the availability of HH, Rehab, DME services. Patient denies the need for additional services at this time and feels safe returning to previous environment. Patient denies being hospitalized within the past 30 days. Patient denies the use of community resources [facility]. Transportation at time of discharge: Janet Adam. CM will assist PRN with any additional DC needs. DCPIA - Discharge Planning Initial Assessment Updated by [email or web address]: Theodora Hughes on 12/05/19 3:20 pm * Is the patient Alert and Oriented? Yes * How many steps to enter\exit or inside your home? 2 w/rails * PCP Dr. Maza * Pharmacy [facility] * Preadmission Environment Home with Family * ADLs Independent * Equipment None * Other Equipment None * List name and contact numbers for known caregivers / representatives who currently or will assist patient after discharge: Janet Adam [phone] * Verbal permission to speak to the caregivers and representatives has been obtained from the patient. Yes * Community resources currently utilized None * Please name any agencies selected above. None * Additional services required to return to the preadmission environment? No * Can the patient safely return to the preadmission environment? Yes * Has this patient been hospitalized within the prior 30 days at any hospital? No Last DP export: 12/05/19 2:24 p Patient Name: BETHEL ADAM Page 15210 at 1203 All edits/amendments must be made on the electronic document DICTATION DATE: 12/06/191201 ACOUSTIC SENSOR OPERATOR: MARIANA 12/06/191201 RPT#: [id number] DC DATE: STATUS: ADM IN [facility] [address] [place] [address] END OF REPORT
--- NOTE | 2019-12-07 12:01 | MORECARE ---
CASE MANAGEMENT DISCHARGE SUMMARY PATIENT: BETHEL ADAM UNIT: [id number] ADM DATE: 12/05/19 AGE: 59 : 56 SEX: M ROOM/BED: D.6408 AUTHOR: LUCA CARMICHAEL PHYSICIAN: REFERRING PHYSICIAN: LLOYD MELCHOR MD DATE OF SERVICE: 12/07/19 Discharge Plan Patient Name: BETHEL ADAM Facility: [facility]:[place] : 1960 Planned Disposition: Home Anticipated Discharge Date: Discharge Date: 12/06/2019 Expected LOS: Initial Reviewer: [email or web address] Initial Review Date: 12/05/2019 Generated: 12/07/19 1:01 pm DCP- Discharge Planning Updated by [email or web address]: Theodora Hughes on 12/05/19 2:[address] CM met with patient to discuss initial discharge planning. Patient is in agreement to proceed with the assessment with his , Janet present. Verified patient's address and telephone number. Patient is alert/oriented. Stairs/steps: 2 w/rails. PCP: Dr. Maza. Pharmacy: [facility]. Patient states they have been able to obtain all of their prescribed medications. Patient lives with spouse. HHS: None. DME: None. Patient gives permission to speak with family members/care givers. Emergency contact: Janetkait Adam [phone]. Patient is Independent with all ADL's, medication management. CM discussed the availability of HH, Rehab, DME services. Patient denies the need for additional services at this time and feels safe returning to previous environment. Patient denies being hospitalized within the past 30 days. Patient denies the use of community resources SWATCH CUTTER. Transportation at time of discharge: Janet Adam. CM will assist PRN with any additional DC needs. DCPIA - Discharge Planning Initial Assessment Updated by [email or web address]: Theodora Hughes on 12/05/19 3:20 pm * Is the patient Alert and Oriented? Yes * How many steps to enter\exit or inside your home? 2 w/rails * PCP Dr. Maza * Pharmacy [facility] * Preadmission Environment Home with Family * ADLs Independent * Equipment None * Other Equipment None * List name and contact numbers for known caregivers / representatives who currently or will assist patient after discharge: Jante Adam [phone] * Verbal permission to speak to the caregivers and representatives has been obtained from the patient. Yes * Community resources currently utilized None * Please name any agencies selected above. None * Additional services required to return to the preadmission environment? No * Can the patient safely return to the preadmission environment? Yes * Has this patient been hospitalized within the prior 30 days at any hospital? No Last DP export: 12/06/19 11:03 a Patient Name: BETHEL ADAM Page [id number] at 1201 All edits/amendments must be made on the electronic document DICTATION DATE: 12/07/19 1201 ANTIQUER: MARIANA 12/07/19 1201 RPT#: [id number] DC DATE:12/06/19 STATUS: DIS IN [facility] [address] [place] [address] END OF REPORT
== END 2019-12-06 11:15 | disposition home or self-care (01) | DRG 247 ==
LOC: D.ER 10:58 → D.M2 15:12
PROVIDERS: Family Medicine; ADMIT Internal Medicine Interventional Cardiology; ATTEND Internal Medicine Interventional Cardiology
PROC: B2111ZZ Fluoroscopy of Multiple Coronary Arteries using Low Osmolar Contrast (ICD-10-PCS; 2019-12-05)
PROC: B2151ZZ Fluoroscopy of Left Heart using Low Osmolar Contrast (ICD-10-PCS; 2019-12-05)
PROC: 4A033BC Measurement of Arterial Pressure, Coronary, Percutaneous Approach (ICD-10-PCS; 2019-12-05)
PROC: 027136Z Dilation of Coronary Artery, Two Arteries with Three Drug-eluting Intraluminal Devices, Percutaneous Approach (ICD-10-PCS; principal; 2019-12-05 15:33)
PROC: 4A023N7 Measurement of Cardiac Sampling and Pressure, Left Heart, Percutaneous Approach (ICD-10-PCS; 2019-12-05 15:33)
DX: I25.110 Atherosclerotic heart disease of native coronary artery with unstable angina pectoris (principal); I48.91 Unspecified atrial fibrillation; E78.5 Hyperlipidemia, unspecified; I10 Essential (primary) hypertension

== ENCOUNTER 2020-02-01 12:14 | Inpatient (IN) | payer MEDICARE ==
[~2020-02-01] VITALS: Ht 180.3 cm; Wt 100.0 kg
[2020-02-01] VITALS (18 sets, daily range): BP systolic 118–149; BP diastolic 69–90; BMI 30.7
--- NOTE | ~2020-02-01 | HP ---
PATIENT: BETHEL PENNINGTON MEDICAL RECORD: [id number] ACCOUNT: [id number] LOCATION:[facility] [id number] : 56 ADMISSION DATE: 02/01/20 PCP: JOSE ALBERTO ROMERO DO HISTORY AND PHYSICAL EXAMINATION ADMITTING DIAGNOSES: 1. Acute inferior myocardial infarction. 2. Coronary artery disease. 3. Previous multivessel percutaneous transluminal coronary angioplasty stent. 4. Hypertension. 5. Hyperlipidemia. HISTORY OF PRESENT ILLNESS: Mr. Pennington is status post PTCA stent of RCA and LAD in November. He did well until today. He had acute onset of chest discomfort while driving. He is having an acute inferior myocardial infarction. PHYSICAL EXAMINATION: CONSTITUTIONAL/GENERAL APPEARANCE: Well nourished, well developed, appears stated age. EYES: Lids and conjunctivae noninjected. No discharge. No pallor. ENT: Lips within normal limit. No cyanosis. No pallor. NECK: Carotid arteries, bilateral normal upstroke. No bruits. No thrills. No jugular venous pressure or distention. CERVICAL LYMPH NODES: Nontender. Nonenlarged. THYROID: Not enlarged. No nodules. CARDIOVASCULAR: Precordial exam, nondisplaced. No heaves or pericardial thrills. Rate and rhythm, regular. Heart sounds, normal S1, normal S2. No S3, no gallop, no rub. Systolic murmur, not heard. Diastolic murmur, not heard. RESPIRATORY: Respiratory effort, unlabored. Normal curvature. No thoracic deformity. No chest wall tenderness. Percussion, resonant. Auscultation, clear. No wheezes, no rales, no rhonchi. ABDOMEN: Soft, nondistended, nontender. No abdominal pain, no vomiting and normal appetite. MUSCULOSKELETAL: No joint tenderness, normal gait, normal tone. SKIN: Warm and dry. OVERALL IMPRESSION: Acute inferior myocardial infarction. We will proceed with emergent cardiac catheterization. Further care depends upon the findings of the catheterization. TRANSINT:[id number] Voice Confirmation ID: [id number] DOCUMENT ID: [id number] LLOYD MELCHOR MD CC: [id number] DICTATION DATE: 02/01/20 1234 SHOE STITCHER ODD: 02/01/20 1537 ADM IN [facility] [id number] [place] [address]
--- NOTE | ~2020-02-01 | OP ---
PATIENT NAME: BETHEL PENNINGTON MEDICAL RECORD: [id number] :56 LOCATION:[id number] ADMISSION DATE:02/01/20 SURGEON: LLOYD MELCHOR MD DATE OF OPERATION: 02/01/2020 PROCEDURES: 1. PTCA stent RCA. 2. Left heart catheterization. 3. Selective coronary angiography. 4. Left ventriculogram. INDICATION: Acute anterior as well as inferior myocardial infarction. DESCRIPTION OF PROCEDURE: After informed consent was obtained and after a detailed description of risks, benefits as well as alternative therapies, the patient elected to proceed with angiogram and angioplasty. The right femoral area was prepped and draped in normal sterile fashion. Right femoral artery was cannulated via modified Seldinger technique with placement of 6-Bhutanese sheath. All catheters exchanged through the sheath. FINDINGS: Left ventriculogram was performed in standard 30-degree ARNOLD view reveals global hypokinesis, ejection fraction 35% range. SELECTIVE CORONARY ANGIOGRAPHY: 1. Left main is with no significant angiographic disease. 2. Left anterior descending is totally closed at the site of the previously placed stent. 3. The left circumflex has moderate irregularities, but no flow-limiting stenosis. 4. Right coronary is totally closed at the site of the previously placed stent. TAPE TRANSFERRER STENT OF THE RCA: We ballooned to the total occlusion with a 2.5 balloon and stented with a 3.5 x 30 Integrity. Result was 0% residual stenosis. TAPE TRANSFERRER STENT OF THE LAD: We ballooned the area of acute thrombus with a 2.5 balloon. Stented this with a 3.0 x 26 and 3.0 x 18 Integrity stents. Result was 0% residual stenosis. OVERALL IMPRESSION: Successful PTCA stent of the LAD and RCA, both going from 100% initial stenosis to 0% residual. TRANSINT:[id number] Voice Confirmation ID: [id number] DOCUMENT ID: [id number] LLOYD MELCHOR MD CC: [id number] DICTATION DATE: 02/01/20 1315 MRI TECH: 02/01/202006 [place] [address]
--- NOTE | ~2020-02-01 | DS ---
PATIENT:BETHEL PENNINGTON :56 MEDICAL RECORD: [id number] DISCHARGE SUMMARY ADMISSION DATE: 02/01/20 DISCHARGE DATE: 02/02/20 DISCHARGE DIAGNOSES: 1. Acute anterior and inferior myocardial infarction. 2. Percutaneous transluminal coronary angioplasty stent left anterior descending and right coronary artery this admission. 3. Coronary artery disease. 4. Hypertension. 5. Hyperlipidemia. HOSPITAL COURSE: Mr. Pennington presents with an acute myocardial infarction, acute closure of LAD and RCA, cardiac stenting was undertaken in November, he had acute closure of both at the site of the previously placed stents. We were able to open these with successful PTCA stent, he had no further anginal symptomatology. He had no heart failure symptomatology. We discontinue his Plavix and switched him to Effient. Continue Xarelto. We will follow up with [facility] in 1 month. TRANSINT:[id number] Voice Confirmation ID: [id number] DOCUMENT ID: [id number] LLOYD MELCHOR MD CC: [id number] DICTATION DATE: 02/02/20 1355 PUBLIC WORKS SUPERVISOR: 02/03/20 0850 DIS IN 02/02/20 [facility] [address] [place] [address]
--- NOTE | ~2020-02-01 | HEMODYNAMI ---
PATIENT:BETHEL PENNINGTON MEDICAL RECORD: [id number] : 56 [address]:[facility] [id number] ADMISSION DATE: 02/01/20 Generatedon:02/01/202013:20 Patient name: BETHEL PENNINGTON Patient #: [id number] SSN: [id number] : 1960 Date of study: 02/01/2020 Page: Of Hemodynamic Procedure Report Patient Data Patient Demographics Procedure consent was obtained First Name: BETHEL Gender: Male Last Name: GORGE : 1960 Middle Initial: ALICE Age: 59 year(s) Patient #: [id number] Race: SSN: [id number] Additional ID: [id number] Contact details Address: [address] [place] [address] State: [place] City: [place] Zip code: [address] Past Medical History Allergies Allergen Reaction Date Comments Reported Other allergy 02/01/2020 N Admission Admission Data Admission Date: 02/01/2020 Admission Time: 12:31 Arrival Date: 02/01/2020 Arrival Time: 0:00 Admit Source: Emergency Insurance Payor: Private department health insurance Room #: D.CV04 [facility] #: [id number] Height (in.): 68 BSA: 2.23 (m2) Height (cm.): 172.72 BMI: 37.33 (kg/m2) Weight (lbs.): 245.51 Weight (kg.): 111.36 Lab Results Lab Result Date: 02/01/2020 Lab Result Time: 0:00 Biochemistry Name Units Result Min Max BUN mg/dl 22 --(----)-* 7 18 Creatinine mg/dl 1.8 --(----)-* 0.6 1.3 eGFR ml/min 41 *-(----)-- 90 120 NONAFRICAN CBC Name Units Result Min Max Hematocrit % 33.9 *-(----)-- 42 54 Hemoglobin g/dl 10.3 *-(----)-- 13.5 17.5 Procedure Procedure Types Cath Procedure Diagnostic Procedure [facility] w/Coronaries PCI Procedure Coronary Stent Coronary Stent Initial x2 Hemochron ACT Test Procedure Description Procedure Date Procedure Date: 02/01/2020 Procedure Start Time: 12:55 Procedure Staff Name Function Gagandeep Bell MD Performing Physician Meghann Mendoza RT Monitor Cody Luo RN Nurse Marlene Johnson RT Scrub Indication Chest wall pain Procedure Data Cath Procedure Fluoroscopy Diagnostic fluoroscopy Total fluoroscopy Time: 5.1 time: 5.1 min min Diagnostic fluoroscopy Total fluoroscopy dose: 684 dose: 684 mGy mGy Contrast Material Contrast Material Type Amount (ml) Isovue 370 113 Entry Location Entry Primary Successful Side Size Upsize Upsize Entry Closure Succes sful Closure Location (Fr) 1 (Fr) 2 (Fr) Remarks Device Remarks Femoral Right 6 Fr Exoseal artery Short Estimated blood loss: 10 ml Diagnostic catheters Device Type Used For End Catheter Placement MULTIPACK Pigtail 5 Fr Procedure catheter MULTIPACK JL 4.0 5Fr Procedure catheter MULTIPACK 3DRC 5Fr Procedure catheter Procedure Complications No complications Procedure Medications Medication Administration Route Dosage Oxygen etCO2 Nasal cannula 2 l/min Heparin Flush Bag added to field 2 bags (1000units/500ml NS) 0.9% NaCl I.V. 100 ml/hr Lidocaine 2% added to field 20 Integrilin (Bolus I.V. 10.2 ml 2mg/ml) Heparin Bolus I.V. 5000 units Integrilin (Bolus I.V. 10.2 ml 2mg/ml) Integrilin Drip I.V. drip 17.8 ml/hr (75mg/100ml) Zofran I.V. 4 mg Morphine I.V. 4 mg Morphine I.V. 4 mg Effient P.O. 60 mg Hemodynamics Rest BSA: 2.23 (m2) HGB: 10.3 (g/dl) O2 Consumption: Estimated: 255.85 (ml/min) O2 Co nsumption indexed: Estimated:114.73 (ml/min/m) Heart Rate: 63 (bpm) Snapshots Pre Cath Intra NCS Post Cath Vital Signs Time Heart Resp SPO2 etCO2 NIBP (mmHg) Rhythm Pain Status Sedation Rate (ipm) (%) (mmHg) Level (bpm) 12:51:36 63 22 100 0 153/95(135) NSR w/ ST 10 (11) , 10(A) Elevation Unimaginable unspeakable 12:55:56 62 14 100 0 148/93(130) NSR w/ ST 10 (11) , 10(A) Elevation Unimaginable unspeakable 13:00:18 54 21 100 0 137/85(117) NSR w/ ST 10 (11) , 10(A) Elevation Unimaginable unspeakable 13:05:15 56 20 100 0 133/109(115) NSR w/ ST 10 (11) , 10(A) Elevation Unimaginable unspeakable 13:10:20 63 13 100 0 151/89(121) NSR w/ ST 10 (11) , 10(A) Elevation Unimaginable unspeakable 13:14:39 62 21 100 0 159/92(132) NSR w/ ST 10 (11) , 10(A) Elevation Unimaginable unspeakable Medications Time Medication Route Dose Verified Delivered Reason Notes Effectiveness by by 12:50:39 Oxygen etCO2 2 Gagandeep Buffie used for Nasal l/min Arabella Luo RN procedure cannula 12:50:57 Heparin Flush added 2 Gagandeep Gagandeep used for Bag to bags Arabella Bell MD procedure (1000units/500ml field NS) 12:51:04 0.9% NaCl I.V. 100 Gagandeep Buffie Per physician ml/hr Arabella Luo RN 12:53:57 Integrilin I.V. 10.2 Gagandeep Buffie for (Bolus 2mg/ml) ml Arabella Luo RN antiplatelet therapy 12:56:46 Lidocaine 2% added 20ml Gagandeep Donis for local to vial Arabella Bell MD anesthetic field 12:57:05 Heparin Bolus I.V. 5000 Gagandeep Buffie for verif ied units Arabella Luo RN anticoagulation with dr bell 13:01:44 Integrilin I.V. 10.2 Gagandeep Buffie for (Bolus 2mg/ml) ml Arabella Luo RN antiplatelet therapy 13:04:04 Integrilin Drip I.V. 17.8 Gagandeep Buffie for (75mg/100ml) drip ml/hr Arabella Luo RN antiplatelet therapy 13:08:32 Zofran I.V. 4 mg Gagandeep Buffie Per physician Arabella Luo RN 13:10:50 Morphine I.V. 4 mg Gagandeep Ross for chest pain Arabella Luo RN 13:20:11 Morphine I.V. 4 mg Gagandeep Ross for chest pain Arabella Luo RN 13:20:22 Effient P.O. 60 mg Gagandeep Ross for Arabella Luo RN antiplatelet therapy Procedure Log Time Note 12:36:17 Informed consent obtained and on chart 12:37:17 Diagnostic Cath Status : Emergency 12:37:56 Indication : Chest wall pain 12:38:47 Cody Luo RN sent for patient. Start room use. 12:39:08 Arrival Date: 02/01/2020 12:00:00 AM 12:39:08 Admit Source: Emergency department 12:39:22 Insurance Payor : Private health insurance 12:39:43 Patient Height : 68 inches 12:39:48 Patient Weight : 245.51 lbs 12:40:16 Lab Result : Hematocrit 33.9 % 12:40:16 Lab Result : Hemoglobin 10.3 g/dl 12:43:01 Patient allergic to Other allergyPCN 12:43:45 Procedure Status Emergent Heart Cath (AMI). 12:43:57 Time tracking: Regular hours (M-F 7:00 - 5:00) 12:44:01 Plan of Care:Hemodynamics will remain stable., Cardiac rhythm will remain stable., Comfort level will be maintained., Respiratory function will remain adequate., Patient/ family verbilizes understanding of procedure., Procedure tolerated without complication., Recovers from procedure without complications.. 12:44:08 Patient received from ED to CCL 1 Alert and oriented. Tansferred to table in Supine position. 12:44:09 Warm blankets applied, and dewayne hugger turned on for patient comfort. 12:44:09 Correct patient and procedure confirmed by team. 12:44:10 ECG and BP/O2 sat monitors applied to patient. 12:44:15 H&P Date Dictated: 02/01/2020 Emergent; H&P N/A, Within 30 days and on chart.. 12:44:16 Pre-procedure instructions explained to patient. 12:44:17 Pre-op teaching completed and patient verbalized understanding. 12:44:18 Family in waiting room. 12:44:20 Patient NPO since Breakfast. 12:44:25 Is the patient allergic to Iodine/contrast media? No. 12:50:28 Vital chart was started 12:50:39 Oxygen 2 l/min etCO2 Nasal cannula was administered by Cody Luo RN; used for procedure; Verbal order read back and verified. 12:50:57 Heparin Flush Bag (1000units/500ml NS) 2 bags added to field was administered by Gagandeep Bell MD; used for procedure; Verbal order read back and verified. 12:51:04 0.9% NaCl 100 ml/hr I.V. was administered by Cody Luo RN; Per physician; Verbal order read back and verified. 12:51:47 Was the patient premedicated? N/A 12:51:49 Is patient on blood thinner?Yes 12:52:00 ACC The patient was administered the following blood thiners within the last 24 hours: ACCPlavix, Xarelto 12:52:02 Patient diabetic? No. 12:52:04 If diabetic: On Metformin? N/A 12:52:05 ----Pre-sedation anethsthesia assessment.---- 12:52:10 Previous problem with sedation/anesthesia? No ? 12:52:12 --------ALL STOP TIME OUT------ 12:52:13 Final Timeout: patient, procedure, and site verified with staff and physician. All members of the team are in agreement. 12:52:16 Right groin site verified by team. 12:52:19 Fire Safety Assessment: A--An alcohol-based skin anteseptic being used preoperatively., C--Open oxygen or nitrous oxide is being used., D--An ESU, laser, or fiber-optic light is being used. 12:52:22 Physical assessment completed. ASA score P 2 - A patient with mild systemic disease as per Gagandeep Bell MD. 12:52:26 Sedation plan: IV Moderate Sedation Medication:Versed, Fentanyl 12:53:57 Integrilin (Bolus 2mg/ml) 10.2 ml I.V. was administered by Cody Luo RN; for antiplatelet therapy; Verbal order read back and verified. 12:53:58 3b) 30-44 Moderately reduced kidney function. 12:54:00 Maximum allowable contrast dose (3.7 X eGFR X 0.75)113 ml. 12:54:02 Sharps counted by scrub and verified by R.N. 12:54:02 Alarms reviewed by R. N. 12:54:05 Right groin area was prepped with chlora-prep and draped in sterile fashion 12:54:16 Stress Test: no; N/A ? 12:54:21 Baseline sample Acquired. 12:54:25 Rhythm: sinus bradycardia 12:54:26 Full Disclosure recording started 12:54:30 Use device set Femoral Dx 12:54:31 ACIST Syringe (33449) opened to sterile field. 12:54:32 Bag Decanter (2002S) opened to sterile field. 12:54:33 Medline Cath Pack ([id number]) opened to sterile field. 12:54:36 ACIST Manifold (53061) opened to sterile field. 12:54:37 ACIST Hand Control (93002) opened to sterile field. 12:54:37 DIAGNOSTIC Multipack 5Fr catheter set (EN4004) opened to sterile field. 12:54:39 EMERALD Guide Wire (502-101) opened to sterile field. 12:54:42 Use device set TAUTH PCI 12:54:44 SHEATH 6FR Bowlus (ORY468) opened to sterile field. 12:54:46 CHOICE PT Extra Support 182cm wire ([id number]) opened to sterile field. 12:54:47 INFLATOR Merit BasixCompak (NF9448) opened to sterile field. 12:54:58 Quick combo pads placed on patients chest and back. 12:55:05 GUIDE 6FR AR 2.0 catheter (AR3QI99) opened to sterile field. 12:55:10 Local anesthetic to right femoral artery with Lidocaine 2% by Gagandeep Bell MD.INITIAL ACCESS ONLY 12:55:19 A 6 Fr Short sheath was inserted into the Right Femoral artery 12:55:34 A MULTIPACK Pigtail 5 Fr catheter was advanced over the wire and used for Procedure. 12:56:01 Lab Result : BUN 22 mg/dl 12:56:01 Lab Result : Creatinine 1.8 mg/dl 12:56:01 Lab Result : eGFR NONAFRICAN 41 ml/min 12:56:46 Lidocaine 2% 20ml vial added to field was administered by Gagandeep Bell MD; for local anesthetic; Verbal order read back and verified. 12:56:54 LV gram done using ARNOLD 12:56:59 EF : 40 % 12:57:00 Injector settings: Ml/sec: 5, Volume: 15, 12:57:04 Catheter removed. 12:57:05 Heparin Bolus 5000 units I.V. was administered by Cody Luo RN; for anticoagulation; verified with dr bell Verbal order read back and verified. 12:57:09 A MULTIPACK JL 4.0 5Fr catheter was advanced over the wire and used for Procedure. 12:57:34 LCA angiography performed. 12:57:38 Injector settings: Ml/sec: 3, Volume: 6, 12:57:41 Catheter removed. 12:57:49 A MULTIPACK 3DRC 5Fr catheter was advanced over the wire and used for Procedure. 12:58:11 GUIDE 6FR XBLAD 4.0 catheter ([id number]) opened to sterile field. 12:58:22 RCA angiography performed. 12:58:26 Injector settings: Ml/sec: 3, Volume: 6, 12:58:41 Proceeding to intervention. 12:58:58 Pre PCI Site: [place] RCA has 100% stenosis. 12:59:05 CHOICE ES 182 wire advanced. 13:01:02 Inflate balloon Inflation number: 1 A EUPHORA 2.5 x 15 Balloon ([id number]) was prepped and advanced across the Dist RCA , then inflated to 17 MARCELINO for 0:00 (min:sec) . 13:01:05 Inflation number: 2 The EUPHORA 2.5 x 15 Balloon ([id number]) was reinflated across the Dist RCA , to 17 MARCELINO for 0:00 (min:sec) . 13:01:09 Inflation number: 3 The EUPHORA 2.5 x 15 Balloon ([id number]) was reinflated across the Dist RCA , to 17 MARCELINO for 0:00 (min:sec) . 13:01:28 Inflation number: 4 The EUPHORA 2.5 x 15 Balloon ([id number]) was reinflated across the Dist RCA , to 5 MARCELINO for 0:00 (min:sec) . 13:01:44 Integrilin (Bolus 2mg/ml) 10.2 ml I.V. was administered by Cody Luo RN; for antiplatelet therapy; Verbal order read back and verified. 13:01:59 Balloon removed over the wire. 13:03:21 Place stent Inflation Number: 5 A INTEGRITY RX 3.5 x 30 stent ([id number]) was prepped and advanced across the Dist RCA . The stent was deployed at 13 MARCELINO for 0:00 (min:sec) . 13:03:30 Stent catheter was removed intact over wire. 13:03:32 Wire removed. 13:03:32 Guide catheter removed. 13:03:39 6 Fr XBLAD 4 guide catheter was inserted over the wire 13:04:04 Integrilin Drip (75mg/100ml) 17.8 ml/hr I.V. drip was administered by Cody Luo RN; for antiplatelet therapy; Verbal order read back and verified. 13:04:28 CHOICE PT Extra Support 182cm wire ([id number]) opened to sterile field. 13:04:31 CHOICE ES 182 wire advanced. 13:04:56 Pre PCI Site: [place] LAD has 85% stenosis. 13:05:49 The INTEGRITY RX 3.5 x 30 stent ([id number]) was advanced then removed because of failure to cross lesion 13:06:27 Inflation number: 1 The EUPHORA 2.5 x 15 Balloon ([id number]) was reinflated across the Mid LAD , to 15 MARCELINO for 0:00 (min:sec) . 13:06:32 Inflation number: 2 The EUPHORA 2.5 x 15 Balloon ([id number]) was reinflated across the Mid LAD , to 15 MARCELINO for 0:00 (min:sec) . 13:06:41 Inflation number: 3 The EUPHORA 2.5 x 15 Balloon ([id number]) was reinflated across the Mid LAD , to 19 MARCELINO for 0:00 (min:sec) . 13:06:58 Balloon removed over the wire. 13:08:03 Place stent Inflation Number: 4 A INTEGRITY RX 2.5 x 26 stent ([id number]) was prepped and advanced across the Mid LAD . The stent was deployed at 17 MARCELINO for 0:00 (min:sec) . 13:08:32 Zofran 4 mg I.V. was administered by Cody Luo RN; Per physician; Verbal order read back and verified. 13:08:33 Stent catheter was removed intact over wire. 13:09:50 Place stent Inflation Number: 5 A INTEGRITY RX 2.5 x 18 stent ([id number]) was prepped and advanced across the Mid LAD . The stent was deployed at 21 MARCELINO for 0:00 (min:sec) . 13:10:04 Stent catheter was removed intact over wire. 13:10:05 Wire removed. 13:10:07 Guide catheter removed. 13:10:11 EXOSEAL 6Fr (EX600) opened to sterile field. 13:10:48 Sheath removed intact; hemostasis achieved with Exoseal to the Right Femoral artery. 13:10:50 Morphine 4 mg I.V. was administered by Cody Luo RN; for chest pain; Verbal order read back and verified. 13:11:13 Procedure ended.(Physican Out) 13:11:42 Fluoroscopy time 05.10 minutes. 13:11:47 Flurop Dose total: 684 13:11:47 Fluoroscopy dose: 684 mGy 13:11:51 Dose Area Product 20667 mGy/cm. 13:11:56 Contrast amount:Isovue 370 113ml. 13:11:58 Maximum allowable dose exceeded? No. 13:11:59 Sharps counted by scrub and verified by R.N. 13:12:06 Post-op/insertion site Right Femoral artery dressed using a 4 x 4 and Tegaderm. 13:12:12 Post right femoral artery:stable, soft, clean and dry 13:12:15 Post Procedure Pulses reassessed and unchanged 13:12:18 Post procedure: right dorsailis pedis pulse 2+ Normal; easily identifiable; not easily obliterated. 13:12:21 Post-procedure physical assessment completed. ASA score P 2 - A patient with mild systemic disease as per Gagandeep Bell MD. 13:12:26 Post procedure rhythm: unchanged. 13:12:29 Estimated blood loss: 10 ml 13:12:30 Post procedure instruction explained to patient.Patient verbalizes understanding. 13:12:31 Patient needs reinforcement of post procedure teaching. 13:13:22 Procedure type changed to Cath procedure, Diagnostic procedure, LHC, C w/Coronaries, PCI procedure, Coronary Stent, Coronary Stent Initial x2, Hemochron ACT Test 13:14:57 Procedure and supply charges have been captured, reviewed, submitted and are correct. 13:15:03 Procedure Complication : No complications 13:15:08 [facility] Findings: MVD- PCI performed (see procedure note) 13:15:09 Operative report dictated upon procedure completion. 13:15:10 See physician's report for complete and final results. 13:15:13 Report given to ICU. 13:15:17 Patient transfered to ICU with Bed. 13:15:25 ACC-PCI Only Patient was given prescriptions, or instructed by Gagandeep Bell MD to start/continue the following medications upon discharge: Plavix 13:17:06 Vital chart was stopped 13:17:11 End room use (Document Last) 13:17:28 End room use (Document Last) 13:17:44 End room use (Document Last) 13:18:59 Wasted 19.6 ml of vial. # vials total used. 13:19:16 ACT drawn and resulted at 333 seconds. (normal therapeutic range 180-240 seconds). 13:20:11 Morphine 4 mg I.V. was administered by Cody Luo RN; for chest pain; Verbal order read back and verified. 13:20:22 Effient 60 mg P.O. was administered by Cody Luo RN; for antiplatelet therapy; Verbal order read back and verified. Intervention Summary Intervention Notes Time ActionType Lesion and Equipment Action# Pressure Duration Attributes Used 13:01:02 Inflate Dist RCA EUPHORA 2.5 1 17 00:00 balloon x 15 Balloon ([id number]) 13:01:05 Reinflate Dist RCA EUPHORA 2.5 2 17 00:00 balloon x 15 Balloon ([id number]) 13:01:09 Reinflate Dist RCA EUPHORA 2.5 3 17 00:00 balloon x 15 Balloon ([id number]) 13:01:28 Reinflate Dist RCA EUPHORA 2.5 4 5 00:00 balloon x 15 Balloon ([id number]) 13:03:21 Place stent Dist RCA INTEGRITY RX 5 13 00:00 3.5 x 30 stent ([id number]) 13:05:49 Discard INTEGRITY RX Stent 3.5 x 30 stent ([id number]) 13:06:27 Reinflate Mid LAD EUPHORA 2.5 1 15 00:00 balloon x 15 Balloon ([id number]) 13:06:32 Reinflate Mid LAD EUPHORA 2.5 2 15 00:00 balloon x 15 Balloon ([id number]) 13:06:41 Reinflate Mid LAD EUPHORA 2.5 3 19 00:00 balloon x 15 Balloon ([id number]) 13:08:03 Place stent Mid LAD INTEGRITY RX 4 17 00:00 2.5 x 26 stent ([id number]) 13:09:50 Place stent Mid LAD INTEGRITY RX 5 21 00:00 2.5 x 18 stent ([id number]) Device Usage Item Name Manufacture Quantity Catalog Number Hospital Part Current Mini mal Lot# / Charge Number Stock Stock Serial# Code ACIST Acist 1 78032 924458 109490 748338 20 Syringe Medical (18379) Systems Inc Bag Decanter Microtek 1 2001S 530024 97837 243912 5 (2001S) Medical Inc. Medline Cath Medline 1 [id number] 508185 96391 288777 5 Pack ([id number]) ACIST Acist 1 38216 998388 683184 129126 5 Manifold Medical (47094) Systems Inc ACIST Hand Acist 1 37850 281640 057146 539356 5 Control Medical (11131) Systems Inc DIAGNOSTIC Cardinal 1 MA2526 116523 88664 391184 30 Game Trust 5Fr catheter set (SJ3945) EMERALD Cardinal 1 502-455 392642 185701 432341 5 Guide Wire [facility] (502-455) SHEATH 6FR Terumo 1 RWN835 244402 104020 727869 40 Bowlus (QHW712) CHOICE PT [place] 2 [id number] 526702 336649 829409 5 Extra Scientific Support 182cm wire (2875985H5) INFLATOR [facility] 1 HA0224 174890 558633 551193 15 [facility] Medical BasixCompak (HQ7418) GUIDE 6FR AR Medtronic 1 [id number] 689613 52139 966569 1 2.0 catheter (SV2FC84) MULTIPACK Cardinal 1 790618 5 Pigtail 5 Fr Health catheter MULTIPACK JL Cardinal 1 063939 5 4.0 5Fr Health catheter MULTIPACK Cardinal 1 830238 5 3DRC 5Fr Health catheter GUIDE 6FR Cardinal 1 [id number] 701389 863772 231702 3 XBLAD 4.0 Health catheter (94737806) EUPHORA 2.5 Medtronic 1 [id number] 670476 969965 953997 5 [id number] x 15 Balloon ([id number]) INTEGRITY RX Medtronic 1 [id number] 598675 503540 350540 5 [id number] 3.5 x 30 stent ([id number]) INTEGRITY RX Medtronic 1 [id number] 966037 677651 306597 5 [id number] 2.5 x 26 stent ([id number]) INTEGRITY RX Medtronic 1 [id number] 480157 148224 789578 5 [id number] 2.5 x 18 stent ([id number]) EXOSEAL 6Fr Cardinal 1 EX600 920671 253517 971549 10 (EX600) Health Signature Audit [place] Stage Time Signature Unsigned Intra-Procedure 02/01/2020 Meghann Mendoza 1:17:29 PM RT(R) Intra-Procedure 02/01/2020 Cody Luo RN 1:17:44 PM Intra-Procedure 02/01/2020 Gagandeep Bell 1:20:[address] [address]
--- NOTE | 2020-02-01 12:25 | NUR ---
DR MELCHOR NOTIFIED, IMPREGNATING HELPER CALLED
[2020-02-01 12:34] LABS: BASOPHILS 0.2 % (0-2); EOSINOPHILS 4.1 % (0-7); HEMATOCRIT 33.9 % (42.0-54.0); HEMOGLOBIN 10.3 g/dL (13.5-17.5); IMMATURE GRANULOCYTES 0.4 % (0-5); LYMPHOCYTES 35.3 % (15-50); MCH 23.7 pg (26.0-34.0); MCHC 30.4 g/dL (31.0-37.0); MCV 77.9 fL (80.0-100.0); MEAN PLATELET VOLUME 10.8 fL (7.4-10.4); MONOCYTES 13.2 % (2-11); NEUTROPHILS 46.8 % (40-80); RBC 4.35 10x6/uL (4.20-6.10); RDW 15.2 % (11.5-14.5); WBC 12.6 10x3/uL (4.8-10.8)
[2020-02-01 12:37] LABS: PLATELET COUNT 280 10x3/uL (130-400)
[2020-02-01 12:42] LABS: APTT 25.2 SECONDS (22.8-39.4); INR 0.98 (0.85-1.17); PROTIME 12.9 SECONDS (11.6-15.0)
[2020-02-01 12:43] LABS: CALC OSMOLALITY 280 mosm/kg (275-300); CALCIUM 9.5 mg/dL (8.5-10.1); CARBON DIOXIDE 23.8 mmol/L (21.0-32.0); CHLORIDE - SERUM 104 mmol/L (98-107); CREATININE - SERUM 1.8 mg/dL (0.6-1.3); POTASSIUM - SERUM 3.9 mmol/L (3.5-5.1); SODIUM 138 mmol/L (136-145); UREA NITROGEN 22 mg/dL (7-18); eGFR NON AFRICAN AMERICAN 41 mL/min (90-120)
[2020-02-01 12:46] LABS: GLUCOSE 131 mg/dL (74-106)
--- NOTE | 2020-02-01 12:46 | NUR ---
PT MEDICATED, TRANSPORTED TO [facility]
[2020-02-01 13:00] LABS: ALBUMIN 3.8 g/dL (3.4-5.0); ALKALINE PHOSPHATASE 77 U/L (30-120); ALT (SGPT) 69 U/L (10-68); BILIRUBIN - TOTAL 0.51 mg/dL (0.2-1.3); CKMB 0.5 U/L (0.0-3.6); CREATINE KINASE 56 UL (21-232); MAGNESIUM - SERUM 2.3 mg/dL (1.8-2.4); PROTEIN - SERUM 7.3 g/dL (6.4-8.2)
[2020-02-01 13:01] LABS: TROPONIN-I < 0.017 ng/mL (0.000-0.060)
--- NOTE | 2020-02-01 13:40 | NUR ---
PT ARRIVED TO UNIT AT THIS TIME VIA BED ACCOMPANIED BY HOSPITAL STAFF. PT RESTING WITH EYES CLOSED, WAKES UP TO QUESTIONS. PT TEMP 91.9 BEAR HUGGER PLACED. PT STATES HE IS STILL HAVING CHEST PAIN, PHYSICIANS ARE AWARE, RECIEVED PRN MEDS. AT BEDSIDE. UPDATES PROVIDED. RT GROIN SITE CDI WITH NO S/S HEMATOMA. WILL CONTINUE TO CLOSELY OBSERVE.
--- NOTE | 2020-02-01 14:00 | NUR ---
patient states he is hot, trying to remove bear huggar. temp 92.7. turned bear huggar down to low setting. right groin dressing dry and intact. small bruise noted on right side of dressing. no bleeding noted pedal pulses palable iv left ac saline lock without redness or swelling. 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 monitor sr. iv right ac infusing with intergralin. on room air reminded to keep right leg straight.
--- NOTE | 2020-02-01 15:00 | NUR ---
no change in right groin. dressing dry and intact. brusing the same. good pedal pulses. states chest is getting better.
--- NOTE | 2020-02-01 16:00 | NUR ---
dr. oates here talked with patient. does not want patient to have xarelto. no change right groin. NS INFUSING AT 100 ML HOUR. SIPS OF WATER TAKEN. HERE UPDATE GIVEN.
--- NOTE | 2020-02-01 17:00 | NUR ---
right groin increase in size and large brusise noted. bruising going down into left groin. pedal pulses palable. paged dr. oates. clinical laboratory manager here. fem stop applied. temp 93.7 bear huggar continues at low temp
--- NOTE | 2020-02-01 17:30 | NUR ---
PEDAL PULSES GOOD. FEM STOP INTACT.
--- NOTE | 2020-02-01 18:00 | NUR ---
DR. FRANKLIN AND DR. OATES NOTIFIED OF SWELLING WITH BRUISING RIGHT GROIN. AND USE OF FEM STOP. ORDERS RECEIVED FROM DR. FRANKLIN FOR ULTRA SOUND OF AREA TOMORROW. H&h q [address] oates stated to leave fem stop on for a couple hours.
--- NOTE | 2020-02-01 18:15 | NUR ---
REC'D TO CV 04 VIA BED. CONNECTED TO MONITOR AND VS OBTAINED. DENIES CHEST PAIN. IV R AC NS @ 100CC/HR AND [place] @ 17.8CC/HR. TEMP UP TO 97.3 ORALLY. JACK HUGGAR IN USE ON LOW. FEM STOP TO R GROIN SITE. BRUISING NOTED. DENIES PAIN AT THE SITE. AREA AROUND FEM STOP SOFT. GIVEN CALL LIGHT AND URINAL. NO DISTRESS NOTED.
--- NOTE | 2020-02-01 18:29 | NUR ---
TRANSFERED TO [facility] ICU PER BED. REPORT GIVEN TO RIOS. PATIENT TOLERATED TRANSFER WELL. FEM STOP STILL INTACT. PEDAL PULSE PALABLE. RIGHT LEG WARM AND DRY. DENIES ANY NUMBNESS OR TINGLING IN RIGHT LEG.
--- NOTE | 2020-02-01 19:00 | NUR ---
Report received from off going nurse. Pt is laying flat in bed with femstop intact. Started taking air from femstop at this time. Initial assessment completed, see flowsheet for details. Pt denies needs at this time. No s/s of distress noted. Will continue to monitor.
[2020-02-01 19:36] LABS: HEMATOCRIT 31.9 % (42.0-54.0); HEMOGLOBIN 9.4 g/dL (13.5-17.5)
--- NOTE | 2020-02-01 21:00 | NUR ---
Pt is laying in bed with eyes closed. Still letting air out of the Femstop. No s/s of bleeding at this time. No needs voiced. No s/s of distress. Will continue to monitor.
--- NOTE | 2020-02-01 23:00 | NUR ---
Reassessment completed, see flowsheet for details. Pt is laying in bed with eyes closed. C/O not being able to sleep despite trying for hours. Page put in to Lor BOSS, orders received. Femstop removed from leg, no s/s of bleeding noted. Will continue to monitor.
[2020-02-02] VITALS (7 sets, daily range): BP systolic 103–121; BP diastolic 60–72; Ht 180.3 cm; Wt 100.0 kg
--- NOTE | 2020-02-02 01:00 | NUR ---
Pt is laying in bed with eyes closed at this time. Denies needs. No s/s of distress. Will continue to monitor.
--- NOTE | 2020-02-02 03:00 | NUR ---
Reassessment completed, see flowsheet for details. Pt is laying in bed with eyes closed. No s/s of distress. Will continue to monitor.
--- NOTE | 2020-02-02 05:00 | NUR ---
Pt is laying in bed with eyes closed. No s/s of distress. Will continue to monitor.
--- NOTE | 2020-02-02 07:00 | NUR ---
REPORT RECEIVED. ASSESSMENT COMPLETE PER FLOW SHEET. VSS. PT RESTING COMFORTABLY DENIES NEEDS. WILL CONTINUE TO MONITOR
--- NOTE | 2020-02-02 07:50 | NUR ---
PT GIVEN BREAKFAST ATE 75%. FAMILY AT BEDSIDE. GIVEN UDPATE. DENIES NEEDS
--- NOTE | 2020-02-02 08:15 | NUR ---
ULTRASOUND AT BEDSIDE GIVEN UDPATE
[2020-02-02 08:42] LABS: HEMATOCRIT 29.2 % (42.0-54.0); HEMOGLOBIN 8.7 g/dL (13.5-17.5); MCH 23.1 pg (26.0-34.0); MCHC 29.8 g/dL (31.0-37.0); MCV 77.7 fL (80.0-100.0); MEAN PLATELET VOLUME 10.3 fL (7.4-10.4); RBC 3.76 10x6/uL (4.20-6.10); RDW 15.3 % (11.5-14.5)
[2020-02-02 08:44] LABS: PLATELET COUNT 187 10x3/uL (130-400); WBC 8.4 10x3/uL (4.8-10.8)
[2020-02-02 09:07] LABS: % SATURATION 3 % (15-55); IRON 14 ug/dl (35-150); TOTAL IRON BIND CAPACITY 390 ug/dl (260-445); UNSAT IRON BIND CAPACITY 376 ug/dl (150-375)
[2020-02-02 09:33] LABS: CALC OSMOLALITY 277 mosm/kg (275-300); CALCIUM 8.6 mg/dL (8.5-10.1); CARBON DIOXIDE 25.6 mmol/L (21.0-32.0); CHLORIDE - SERUM 107 mmol/L (98-107); CREATININE - SERUM 1.6 mg/dL (0.6-1.3); FERRITIN 13 ng/mL (3-244); GLUCOSE 124 mg/dL (74-106); SODIUM 137 mmol/L (136-145); UREA NITROGEN 20 mg/dL (7-18); eGFR NON AFRICAN AMERICAN 47 mL/min (90-120)
[2020-02-02 09:42] LABS: POTASSIUM - SERUM 4.5 mmol/L (3.5-5.1)
--- NOTE | 2020-02-02 11:00 | NUR ---
REASSESSMENT COMPLETE PER FLOW SHEET. VSS. NO NEW CHANGES PT RESTING COMFORTABLY WILL CONTINUE TO MONTIOR
[2020-02-02 13:00] LABS: LYMPHOCYTES 14 % (15-50); MONOCYTES 9 % (2-11); NEUTROPHILS 77 % (40-80); PLATELET ESTIMATE NORMAL
[2020-02-02] MEDS ORDERED: LISINOPRIL2.5 MG PO (13:43)
[2020-02-02] MEDS ORDERED: EFFIENT10 MG PO (13:43)
--- NOTE | 2020-02-02 14:00 | NUR ---
DR MELCHOR AT BEDSIDE
--- NOTE | 2020-02-02 14:10 | NUR ---
PT DISCHARGED VIA WHEELCHAIR. VSS UPON DC
--- NOTE | 2020-02-02 17:30 | MORECARE ---
CASE MANAGEMENT DISCHARGE SUMMARY PATIENT: BETHEL PENNINGTON UNIT: [id number] ADM DATE: 02/01/20 AGE: 59 : 56 SEX: M ROOM/BED: [facility] AUTHOR: LUCA CARMICHAEL PHYSICIAN: REFERRING PHYSICIAN: OZ FRANKLIN MD DATE OF SERVICE: 02/02/20 Discharge Plan Patient Name: BETHEL PENNINGTON Facility: [facility]:[place] : 1960 Planned Disposition: Home Anticipated Discharge Date: Discharge Date: 02/02/2020 Expected LOS: Initial Reviewer: [email or web address] Initial Review Date: 02/01/2020 Generated: 02/02/20 6:29 pm Patient Name: BETHEL PENNINGTON Page [phone] at 1730 All edits/amendments must be made on the electronic document DICTATION DATE: 02/02/201728 [employer] TRANSPORT DRIVER: MARIANA 02/02/201728 RPT#: [id number] DC DATE:02/02/20 STATUS: DIS IN [facility] [address] [place] [place] [address] END OF REPORT
--- NOTE | 2020-02-02 17:52 | MORECARE ---
CASE MANAGEMENT DISCHARGE SUMMARY PATIENT: BETHEL PENNINGTON UNIT: [id number] ADM DATE: 02/01/20 AGE: 59 : 56 SEX: M ROOM/BED: [facility] AUTHOR: AMOLDOC PHYSICIAN: REFERRING PHYSICIAN: OZ FRANKLIN MD DATE OF SERVICE: 02/02/20 Discharge Plan Patient Name: BETHEL PENNINGTON Facility: [facility]:[place] : 1960 Planned Disposition: Home Anticipated Discharge Date: Discharge Date: 02/02/2020 Expected LOS: Initial Reviewer: [email or web address] Initial Review Date: 02/01/2020 Generated: 02/02/20 6:52 pm Comments DCP- Discharge Planning Updated by [email or web address]: Crystal Umanzor on 02/02/20 4:[address] Patient Name: BETHEL PENNINGTON Admission Status: ER Accout number: [id number] Admission Date: 02-01-2020 : 1960 Admission Diagnosis: Attending: OZ FRANKLIN Current LOS: 1 Anticipated DC Date: Planned Disposition: Home Primary Insurance: [employer] Discharge Planning Comments: CM met with patient to complete initial dc planning assessment. CM educated patient on the CM role and verbal consent given by patient to complete assessment. CM verified patient's address, phone number, and emergency contact phone numbers. Patient lives at home with his spouse. At discharge patient plans to return home and feels that this is a safe discharge. CM discussed availability of home health, rehab services, and medical equipment. Patient denies any discharge needs. CM checked on cost of Effient with patient's insurance and he has $0 copay. CM will continue to follow and will assist as needed with dc plans/needs. Corrosion Technician: Crystal Umanzor DCPIA - Discharge Planning Initial Assessment Updated by [email or web address]: Crystal Umanzor on 02/02/20 5:46 pm * Is the patient Alert and Oriented? Yes * How many steps to enter\exit or inside your home? * PCP [facility] * Pharmacy [facility] * Preadmission Environment Home with Family * ADLs Independent * Equipment None * List name and contact numbers for known caregivers / representatives who currently or will assist patient after discharge: DAKSHA PENNINGTON - SPOUSE- [phone] * Verbal permission to speak to the caregivers and representatives has been obtained from the patient. Yes * Community resources currently utilized None * Additional services required to return to the preadmission environment? No * Can the patient safely return to the preadmission environment? Yes * Has this patient been hospitalized within the prior 30 days at any hospital? No Last DP export: 02/02/20 4:30 pm Patient Name: BETHEL PENNINGTON Page [id number] at 1752 All edits/amendments must be made on the electronic document DICTATION DATE: 02/02/201751 CLUB CAR ATTENDANT: MARIANA 02/02/201751 RPT#: [id number] DC DATE:02/02/20 STATUS: DIS IN [facility] [address] [place] [address] END OF REPORT
== END 2020-02-02 14:21 | disposition home or self-care (01) | DRG 248 ==
LOC: D.ER 12:14 → D.CVICU 12:31 → D.ICU 13:57 → D.CVICU 18:15
PROVIDERS: Emergency Medicine; Family Medicine; Internal Medicine Interventional Cardiology; ADMIT Internal Medicine Nephrology; ATTEND Internal Medicine Nephrology
PROC: B2151ZZ Fluoroscopy of Left Heart using Low Osmolar Contrast (ICD-10-PCS; 2020-02-01)
PROC: 4A023N7 Measurement of Cardiac Sampling and Pressure, Left Heart, Percutaneous Approach (ICD-10-PCS; 2020-02-01)
PROC: 02713EZ Dilation of Coronary Artery, Two Arteries with Two Intraluminal Devices, Percutaneous Approach (ICD-10-PCS; principal; 2020-02-01 12:38)
PROC: B2111ZZ Fluoroscopy of Multiple Coronary Arteries using Low Osmolar Contrast (ICD-10-PCS; 2020-02-01 12:38)
DX: I97.190 Other postprocedural cardiac functional disturbances following cardiac surgery (principal); I21.A9 Other myocardial infarction type; T82.867A Thrombosis due to cardiac prosthetic devices, implants and grafts, initial encounter; N17.9 Acute kidney failure, unspecified; E78.5 Hyperlipidemia, unspecified; I10 Essential (primary) hypertension; I25.10 Atherosclerotic heart disease of native coronary artery without angina pectoris; I25.5 Ischemic cardiomyopathy; I48.0 Paroxysmal atrial fibrillation; E03.9 Hypothyroidism, unspecified; D50.9 Iron deficiency anemia, unspecified

== ENCOUNTER 2020-04-09 10:34 | Emergency (ER) | payer MEDICARE ==
[~2020-04-09] VITALS: Ht 180.3 cm; Wt 95.5 kg
[~2020-04-09 10:34] MED LIST changes: +EFFIENT10 MG PO; +LISINOPRIL2.5 MG PO
[2020-04-09 10:41] VITALS: Ht 180.3 cm; Wt 95.5 kg
[2020-04-09] MEDS ORDERED: EFFIENT10 MG PO (10:51)
[2020-04-09] MEDS ORDERED: COREG12.5 MG PO (10:52)
[2020-04-09 11:17] LABS: CALC OSMOLALITY 275 mosm/kg (275-300); CHLORIDE - SERUM 103 mmol/L (98-107); CREATININE - SERUM 1.5 mg/dL (0.6-1.3); GLUCOSE 136 mg/dL (74-106); POTASSIUM - SERUM 4.5 mmol/L (3.5-5.1); SODIUM 135 mmol/L (136-145); UREA NITROGEN 23 mg/dL (7-18); eGFR NON AFRICAN AMERICAN 51 mL/min (90-120)
[2020-04-09 11:18] LABS: APTT 33.4 SECONDS (22.8-39.4); INR 1.45 (0.85-1.17); PROTIME 17.5 SECONDS (11.6-15.0)
[2020-04-09 11:27] LABS: BASOPHILS 0.2 % (0-2); EOSINOPHILS 2.2 % (0-7); HEMATOCRIT 30.8 % (42.0-54.0); HEMOGLOBIN 8.7 g/dL (13.5-17.5); IMMATURE GRANULOCYTES 0.2 % (0-5); LYMPHOCYTES 15.4 % (15-50); MCHC 28.2 g/dL (31.0-37.0); MCV 69.5 fL (80.0-100.0); MEAN PLATELET VOLUME 10.7 fL (7.4-10.4); MONOCYTES 14.4 % (2-11); NEUTROPHILS 67.6 % (40-80); PLATELET COUNT 195 10x3/uL (130-400); RBC 4.43 10x6/uL (4.20-6.10); RDW 16.7 % (11.5-14.5); WBC 5.6 10x3/uL (4.8-10.8)
[2020-04-09 11:31] LABS: ALBUMIN 3.3 g/dL (3.4-5.0); ALKALINE PHOSPHATASE 71 U/L (30-120); ALT (SGPT) 176 U/L (10-68); BILIRUBIN - TOTAL 0.54 mg/dL (0.2-1.3); CKMB 3.4 U/L (0.0-3.6); CREATINE KINASE 155 UL (21-232); PROTEIN - SERUM 6.6 g/dL (6.4-8.2)
[2020-04-09 11:32] LABS: TROPONIN-I < 0.017 ng/mL (0.000-0.060)
[2020-04-09 11:48] LABS: MCH 19.6 pg (26.0-34.0)
[2020-04-09 13:56] VITALS: BP 122/56
== END 2020-04-09 13:57 | disposition home or self-care (01) ==
LOC: D.ER 10:34
PROVIDERS: Family Medicine
DX: I95.1 Orthostatic hypotension (principal); I48.91 Unspecified atrial fibrillation; E07.9 Disorder of thyroid, unspecified; I25.2 Old myocardial infarction

== ENCOUNTER 2020-04-16 15:22 | Inpatient (IN) | payer MEDICARE ==
[~2020-04-16] VITALS: Ht 180.3 cm; Wt 79.5 kg
[~2020-04-16 15:22] MED LIST changes: +COREG12.5 MG PO
[2020-04-16 17:04] LABS: BASOPHILS 0.2 % (0-2); EOSINOPHILS 1.7 % (0-7); HEMATOCRIT 31.1 % (42.0-54.0); HEMOGLOBIN 8.6 g/dL (13.5-17.5); IMMATURE GRANULOCYTES 0.4 % (0-5); LYMPHOCYTES 11.2 % (15-50); MCHC 27.7 g/dL (31.0-37.0); MCV 68.4 fL (80.0-100.0); MONOCYTES 13.5 % (2-11); PLATELET COUNT 182 10x3/uL (130-400); RBC 4.55 10x6/uL (4.20-6.10); RDW 17.2 % (11.5-14.5); WBC 5.3 10x3/uL (4.8-10.8)
[2020-04-16 17:10] LABS: MCH 18.9 pg (26.0-34.0)
[2020-04-16 17:34] VITALS: BMI 24.4
[2020-04-16 17:38] LABS: ALBUMIN 3.3 g/dL (3.4-5.0); ALKALINE PHOSPHATASE 69 U/L (30-120); ALT (SGPT) 154 U/L (10-68); BILIRUBIN - TOTAL 0.55 mg/dL (0.2-1.3); CALC OSMOLALITY 272 mosm/kg (275-300); CALCIUM 8.8 mg/dL (8.5-10.1); CARBON DIOXIDE 27.5 mmol/L (21.0-32.0); CHLORIDE - SERUM 102 mmol/L (98-107); CKMB 0.8 U/L (0.0-3.6); CREATINE KINASE 25 UL (21-232); CREATININE - SERUM 1.8 mg/dL (0.6-1.3); GLUCOSE 87 mg/dL (74-106); POTASSIUM - SERUM 4.5 mmol/L (3.5-5.1); PROTEIN - SERUM 6.6 g/dL (6.4-8.2); SODIUM 136 mmol/L (136-145); THYROID STIMULATING HORMONE 0.01 uIU/mL (0.36-3.74); TROPONIN-I < 0.017 ng/mL (0.000-0.060); UREA NITROGEN 19 mg/dL (7-18); eGFR NON AFRICAN AMERICAN 41 mL/min (90-120)
[2020-04-16] MEDS ORDERED: AMIODARONE HCL200 MG PO (17:57)
[2020-04-16] MEDS ORDERED: BAYER CHEWABLE81 MG PO (17:58)
--- NOTE | 2020-04-16 19:24 | NUR ---
RECEIVED UP IN BED WITH EYES OPEN AND TV ON . ALERT AND ORIENTED X4. UP AD JESSICA TO B/R. IV TO RT FA SL. TELEMETRY IN PLACE. DENIES ANY NEEDS AT THIS TIME.
[2020-04-16 20:30] VITALS: BP 105/57
[2020-04-16 21:59] LABS: CKMB 0.5 U/L (0.0-3.6); CREATINE KINASE 29 UL (21-232); TROPONIN-I < 0.017 ng/mL (0.000-0.060)
[2020-04-16 23:27] LABS: HEMATOCRIT 27.8 % (42.0-54.0); HEMOGLOBIN 7.7 g/dL (13.5-17.5)
[2020-04-16 23:40] LABS: ANION GAP 11.4 mmol/L (8-16); BILIRUBIN - TOTAL 0.47 mg/dL (0.2-1.3); CALCIUM 8.6 mg/dL (8.5-10.1); CARBON DIOXIDE 26.1 mmol/L (21.0-32.0); CREATININE - SERUM 1.8 mg/dL (0.6-1.3); POTASSIUM - SERUM 4.5 mmol/L (3.5-5.1); PROTEIN - SERUM 5.9 g/dL (6.4-8.2); THYROID STIMULATING HORMONE 0.01 uIU/mL (0.36-3.74)
[2020-04-17 00:30] VITALS: BP 112/63
[2020-04-17 04:30] VITALS: BP 95/62
--- NOTE | 2020-04-17 07:15 | NUR ---
RECEIVED PT IN BED AAOX4 RESP UNLABORED SKIN W/D COLOR WNL PRBCs INFUSING TO RFA WITHOUT DIFFICULTY SITE FEE OF REDNESS OR EDEMA PT DENIES ANY NEEDS OR DISCOMFORT AT THIS TIME
[2020-04-17 08:29] VITALS: BP 114/71
[2020-04-17 10:06] LABS: BASOPHILS 0.2 % (0-2); EOSINOPHILS 1.3 % (0-7); IMMATURE GRANULOCYTES 0.3 % (0-5); MCH 21.4 pg (26.0-34.0); MCHC 29.9 g/dL (31.0-37.0); MONOCYTES 10.5 % (2-11); NEUTROPHILS 75.7 % (40-80); PLATELET COUNT 153 10x3/uL (130-400); RBC 4.67 10x6/uL (4.20-6.10); RDW 19.6 % (11.5-14.5); WBC 5.9 10x3/uL (4.8-10.8)
[2020-04-17 10:07] LABS: HEMATOCRIT 33.5 % (42.0-54.0); MCV 71.7 fL (80.0-100.0)
[2020-04-17 10:19] LABS: APTT 33.9 SECONDS (22.8-39.4); INR 1.78 (0.85-1.17); PROTIME 20.5 SECONDS (11.6-15.0)
[2020-04-17 10:22] LABS: % SATURATION 38 % (15-55); IRON 27 ug/dl (35-150); TOTAL IRON BIND CAPACITY 70 ug/dl (260-445); UNSAT IRON BIND CAPACITY 43 ug/dl (150-375)
[2020-04-17 10:49] LABS: CALC OSMOLALITY 276 mosm/kg (275-300); CALCIUM 8.3 mg/dL (8.5-10.1); CARBON DIOXIDE 25.9 mmol/L (21.0-32.0); CHLORIDE - SERUM 103 mmol/L (98-107); CKMB 0.5 U/L (0.0-3.6); CREATINE KINASE 25 UL (21-232); CREATININE - SERUM 1.9 mg/dL (0.6-1.3); FERRITIN 15 ng/mL (3-244); GLUCOSE 108 mg/dL (74-106); LDH 196 U/L (85-227); MAGNESIUM - SERUM 1.9 mg/dL (1.8-2.4); PHOSPHOROUS 3.3 mg/dL (2.5-4.9); PRO BNP 414 pg/mL (0-125); SODIUM 137 mmol/L (136-145); TROPONIN-I < 0.017 ng/mL (0.000-0.060); UREA NITROGEN 19 mg/dL (7-18); eGFR NON AFRICAN AMERICAN 38 mL/min (90-120)
[2020-04-17 11:29] VITALS: Ht 180.3 cm; Wt 79.5 kg
[2020-04-17 13:56] VITALS: BP 104/64
[2020-04-17 15:33] LABS: BILIRUBIN NEGATIVE (NEGATIVE); GLUCOSE NEGATIVE (NEGATIVE); KETONE NEGATIVE (NEGATIVE); NITRITE NEGATIVE (NEGATIVE); SPECIFIC GRAVITY 1.025 (1.005-1.020); UROBILINOGEN NORMAL (NORMAL)
[2020-04-17 16:14] LABS: HEMATOCRIT 31.9 % (42.0-54.0); HEMOGLOBIN 9.5 g/dL (13.5-17.5)
[2020-04-17 18:25] VITALS: BP 100/60
[2020-04-17 20:30] VITALS: BP 98/58
--- NOTE | 2020-04-17 22:15 | NUR ---
INITIAL ROUNDS COMPLETED AT 1915 HRS. PT DENIED ANY DISCOMFORT. ASSESSMENT COMPLETED AT 2009 HRS. VSS. SR PER CM HR 73. ALERT AND ORIENTED TO PERSON, PLACE AND TIME. MAIER. IV TO R WRIST WITH NS AT 55CC/HR. IV PATENT. LUNGS ESSENTIALLY CTA. PALPABLE PERIPHERAL PULSES. PM MEDS GIVEN. PT CURRETNLY WATCHIONG TV. SR UP X2, CALL LIGHT WITHIN REACH.
[2020-04-17 22:31] LABS: HEMATOCRIT 30.8 % (42.0-54.0); HEMOGLOBIN 9.1 g/dL (13.5-17.5)
--- NOTE | 2020-04-17 23:54 | NUR ---
PT RESTING WITH EYES CLOSED. RESP EVEN AND REGULAR. SR UP X1, CALL LIGHT WITHIN REACH.
[2020-04-18] VITALS (8 sets, daily range): BP systolic 97–123; BP diastolic 59–69
--- NOTE | 2020-04-18 02:23 | NUR ---
PT RESTING WITH EYES CLOSED. RESP EVEN AND REGULAR. CALL LIGHT WITHIN REACH.
--- NOTE | 2020-04-18 04:26 | NUR ---
PT AWAKE; DENIES ANY DISCOMFORT. CALL LIGHT WITHIN REACH.
--- NOTE | 2020-04-18 04:33 | NUR ---
ORTHOSTATIC VS DONE. LAYING BP 111/69 HR 73. SITTING BP 103/67 HR 76, STANDING BP 99/63 HR 78.
[2020-04-18 05:01] LABS: BASOPHILS 0.2 % (0-2); EOSINOPHILS 3.5 % (0-7); HEMOGLOBIN 9.3 g/dL (13.5-17.5); IMMATURE GRANULOCYTES 0.5 % (0-5); LYMPHOCYTES 20.2 % (15-50); MCH 21.4 pg (26.0-34.0); MCV 71.4 fL (80.0-100.0); MONOCYTES 17.9 % (2-11); NEUTROPHILS 57.7 % (40-80); PLATELET COUNT 148 10x3/uL (130-400); RBC 4.34 10x6/uL (4.20-6.10); RDW 19.2 % (11.5-14.5); WBC 6.1 10x3/uL (4.8-10.8)
[2020-04-18 05:15] LABS: ANION GAP 13.4 mmol/L (8-16); CALCIUM 8.3 mg/dL (8.5-10.1); CARBON DIOXIDE 22.5 mmol/L (21.0-32.0); CREATININE - SERUM 1.8 mg/dL (0.6-1.3); MAGNESIUM - SERUM 1.8 mg/dL (1.8-2.4); PHOSPHOROUS 3.6 mg/dL (2.5-4.9); POTASSIUM - SERUM 3.9 mmol/L (3.5-5.1)
--- NOTE | 2020-04-18 06:35 | NUR ---
VSS THROUGHOUT NIGHT. SR PER CM. PT DENIED ANY DISCOMFORT. NEEDS MET; WILL CONTINUE TO MONITOR.
[2020-04-18 10:15] LABS: HEMATOCRIT 30.9 % (42.0-54.0); HEMOGLOBIN 9.1 g/dL (13.5-17.5)
[2020-04-18 13:13] LABS: T4 THYROXIN - FREE 1.86 ng/dL (0.76-1.46)
--- NOTE | 2020-04-18 20:16 | NUR ---
INITIAL ROUNDS COMPLETED AT 1905 HRS. PT WATCHING TV. DENIES ANY DISCOMFORT. ASSESSMENT COMPLETED AT 1955 HRS. UCAF PER CM HR 106. ALERT AND ORIENTED TO PERSON, PLACE AND TIME. MAIER. PALPABLE PERIPHERAL PULSES. IV TO R WRIST WITH NS AT 55CC/HR IV PATENT. LUNGS CTA. SR UP X1, CALL LIGHT WITHIN REACH.
--- NOTE | 2020-04-18 21:40 | NUR ---
PM MEDS GIVEN. PT CURRENTLY WATCHING TV. NO DISTRESS NOTED. SR UP X1, CALL LIGHT WITHIN REACH.
--- NOTE | 2020-04-18 23:14 | NUR ---
SR PER CM HR 71. PT DENIES ANY DISCOMFORT OR NEEDS AT THIS TIME. CALL LIGHT WITHIN REACH.
--- NOTE | 2020-04-19 01:34 | NUR ---
PT AWAKE; DENIES ANY DISCOMFORT. CALL LIGHT WITHIN REACH.
--- NOTE | 2020-04-19 03:57 | NUR ---
PT UP IN BR. DENIES ANY DISCOMFORT.
[2020-04-19 04:00] VITALS: BP 108/61
--- NOTE | 2020-04-19 06:32 | NUR ---
VSS THROUGHOUT NIGHT. SR PER CM HR 65 THIS AM. NEEDS MET; WILL CONTINUE TO MONITOR.
[2020-04-19 07:13] LABS: ANION GAP 9.8 mmol/L (8-16); CALCIUM 8.1 mg/dL (8.5-10.1); CREATININE - SERUM 1.7 mg/dL (0.6-1.3); MAGNESIUM - SERUM 1.8 mg/dL (1.8-2.4); PHOSPHOROUS 3.8 mg/dL (2.5-4.9); POTASSIUM - SERUM 3.8 mmol/L (3.5-5.1)
[2020-04-19 07:42] LABS: BASOPHILS 0.3 % (0-2); EOSINOPHILS 4.3 % (0-7); HEMATOCRIT 30.3 % (42.0-54.0); HEMOGLOBIN 8.9 g/dL (13.5-17.5); IMMATURE GRANULOCYTES 0.3 % (0-5); LYMPHOCYTES 22.3 % (15-50); MCH 21.2 pg (26.0-34.0); MCHC 29.4 g/dL (31.0-37.0); MCV 72.1 fL (80.0-100.0); MONOCYTES 17.5 % (2-11); NEUTROPHILS 55.3 % (40-80); PLATELET COUNT 140 10x3/uL (130-400); RDW 19.9 % (11.5-14.5); WBC 5.8 10x3/uL (4.8-10.8)
[2020-04-19 10:37] VITALS: BP 101/60
[2020-04-19 14:17] VITALS: BP 97/51
[2020-04-19 20:00] VITALS: BP 96/49
[2020-04-20 04:00] VITALS: BP 118/55
[2020-04-20 06:19] LABS: BASOPHILS 0.4 % (0-2); EOSINOPHILS 5.2 % (0-7); HEMATOCRIT 31.1 % (42.0-54.0); HEMOGLOBIN 9.1 g/dL (13.5-17.5); IMMATURE GRANULOCYTES 0.5 % (0-5); LYMPHOCYTES 25.6 % (15-50); MCHC 29.3 g/dL (31.0-37.0); MCV 71.7 fL (80.0-100.0); MONOCYTES 13.5 % (2-11); NEUTROPHILS 54.8 % (40-80); PLATELET COUNT 146 10x3/uL (130-400); RBC 4.34 10x6/uL (4.20-6.10); RDW 20.2 % (11.5-14.5); WBC 5.6 10x3/uL (4.8-10.8)
[2020-04-20 06:34] LABS: CALCIUM 8.2 mg/dL (8.5-10.1); CARBON DIOXIDE 25.5 mmol/L (21.0-32.0); CREATININE - SERUM 1.7 mg/dL (0.6-1.3); MAGNESIUM - SERUM 1.8 mg/dL (1.8-2.4); PHOSPHOROUS 3.8 mg/dL (2.5-4.9); POTASSIUM - SERUM 3.5 mmol/L (3.5-5.1)
[2020-04-20 09:30] VITALS: BP 109/67
[2020-04-20 11:52] VITALS: BP 93/53
--- NOTE | 2020-04-20 14:31 | NUR ---
IV AND TELEMETRY DCD. DC PLANS GIVEN. UNDERSTANDING VOICED.
--- NOTE | 2020-04-20 14:49 | NUR ---
ESCORTED TO CAR BY W/C.
== END 2020-04-20 14:49 | disposition home or self-care (01) | DRG 812 ==
LOC: D.M2 15:22
PROVIDERS: Family Medicine; Internal Medicine Hematology & Oncology; ADMIT Internal Medicine Nephrology; ATTEND Internal Medicine Nephrology
DX: D50.9 Iron deficiency anemia, unspecified (principal); I48.20 Chronic atrial fibrillation, unspecified; I13.0 Hypertensive heart and chronic kidney disease with heart failure and stage 1 through stage 4 chronic kidney disease, or unspecified chronic kidney disease; I50.32 Chronic diastolic (congestive) heart failure; N17.9 Acute kidney failure, unspecified; I25.10 Atherosclerotic heart disease of native coronary artery without angina pectoris; E03.9 Hypothyroidism, unspecified; I95.1 Orthostatic hypotension; E78.5 Hyperlipidemia, unspecified; D63.1 Anemia in chronic kidney disease; N18.3 Chronic kidney disease, stage 3 (moderate); Z79.01 Long term (current) use of anticoagulants

== ENCOUNTER 2020-08-17 08:45 | Day surgery (SDC) | payer MEDICARE ==
[~2020-08-17] VITALS: Ht 180.3 cm; Wt 97.7 kg
[~2020-08-17 08:45] MED LIST changes: +BAYER CHEWABLE81 MG PO
[2020-08-17 09:06] LABS: HEMOGLOBIN 14.8 g/dL (13.5-17.5); MCH 28.1 pg (26.0-34.0); MCHC 32.9 g/dL (31.0-37.0); MCV 85.4 fL (80.0-100.0); MEAN PLATELET VOLUME 10.2 fL (7.4-10.4); RBC 5.27 10x6/uL (4.20-6.10); RDW 17.2 % (11.5-14.5); WBC 5.6 10x3/uL (4.8-10.8)
[2020-08-17 09:27] LABS: ANION GAP 12.1 mmol/L (8-16); CALCIUM 8.8 mg/dL (8.5-10.1); CARBON DIOXIDE 24.9 mmol/L (21.0-32.0); CREATININE - SERUM 1.5 mg/dL (0.6-1.3)
[2020-08-17 09:33] LABS: APTT 33.3 SECONDS (22.8-39.4); INR 1.09 (0.85-1.17); PROTIME 14.1 SECONDS (11.6-15.0)
[2020-08-17 09:42] VITALS: BP 121/78; Ht 180.3 cm; Wt 97.7 kg
[2020-08-17] MEDS ORDERED: EFFIENT10 MG PO (09:49)
[2020-08-17] MEDS ORDERED: ARMOUR THYROID30 MG PO (09:49)
[2020-08-17] MEDS ORDERED: COREG12.5 MG (09:50)
--- NOTE | 2020-08-17 14:34 | NUR ---
1328 DRESSED. AWAKE & ALERT. GIVEN MED REC, RTC APPT, [facility] D/C INSTRUCTIONS. REQUESTS RX: NEXIUM 40MG BE CALLED IN TO [facility]. VOICED UNDERSTANDING. TO PRIVATE CAR PER WHEELCHAIR BY STAFF. HOME WITH . Jayce BOWIE R.N. 1808 RX: NEXIUM 40MG CALLED IN TO [facility] BY Misael IVAN R.N.. Jayce BOWIE R.N.
--- NOTE | 2020-08-17 17:09 | HP ---
PATIENT: BETHEL PENNINGTON MEDICAL RECORD: [id number] ACCOUNT: [id number] LOCATION:[place] : 56 ADMISSION DATE: 08/17/20 PCP: JOSE ALBERTO ROMERO DO HISTORY AND PHYSICAL EXAMINATION HISTORY OF PRESENT ILLNESS: The patient has iron-deficiency anemia, requiring transfusions. The patient is requiring iron infusions as well as blood transfusions. He has a history of shortness of breath, syncope. He has had no melena. No hematochezia. No dysphagia. HOME MEDICATIONS: Please see list above. He has been off of Effient for several days. ALLERGIES: PENICILLIN. PAST MEDICAL AND SURGICAL HISTORY: Coronary artery disease, atrial fibrillation, history of myocardial infarction, history of 6 coronary stents, hypothyroidism on replacement therapy, chronic kidney disease. SOCIAL HISTORY: Nonsmoker. REVIEW OF SYSTEMS: Negative for CVA or seizures. Negative for diabetes or hepatitis. PHYSICAL EXAMINATION: GENERAL: The patient does not appear acutely ill. He does not appear chronically ill. VITAL SIGNS: Reviewed. EARS: External ears appear normal. EYES: Extraocular movements are intact. NECK: Trachea is midline. CHEST: No intercostal retractions. PULMONARY: Nonlabored, no stridor. IMPRESSION: Iron-deficiency anemia requiring transfusions. PLAN: Will be upper and lower endoscopy. TRANSINT:[id number] Voice Confirmation ID: [id number] DOCUMENT ID: [id number] NELLI SHAW MD at 1709 CC: JOSE ALBERTO ROMERO DO, HALEIGH GANDARA MD and CAROLSHAHID MICHAEL [id number] DICTATION DATE: 08/17/20 1142 INTERNATIONAL EDITORIAL PRODUCER: 08/17/20 1556 [facility] 08/17/20 [id number] [place] [address]
--- NOTE | 2020-08-19 17:40 | OP ---
PATIENT NAME: BETHEL PENNINGTON MEDICAL RECORD: [id number] :56 LOCATION:D.OPS ADMISSION DATE: SURGEON: YOSHI SHAW MD DATE OF OPERATION: 08/17/2020 PREOPERATIVE DIAGNOSIS: Iron deficiency anemia requiring transfusions. POSTOPERATIVE DIAGNOSES: 1. Iron deficiency anemia requiring transfusions. 2. Multiple antral erosions. 3. Flat colon polyp, 2 centimeters. PROCEDURES: 1. Esophagogastroduodenoscopy with antral biopsies. 2. Total colonoscopy to cecum. 3. Hot biopsy forceps polypectomy times 1. SURGEON: Yoshi Shaw MD TAXI CAB DRIVER: None. BLOOD LOSS: Minimal. ANESTHESIA: IV sedation. COMPLICATIONS: None. The risks, possible complications and alternatives to the procedure were explained to the patient. He elects to proceed. ENDOSCOPIC COURSE: The patient was conveyed to endoscopy suite electively on 08/17/2020. IV sedation was induced by the anesthesia staff. A bite block was inserted. A gastroscope was inserted into the mouth. It was advanced easily into the hypopharynx. The esophagus was easily intubated as were the stomach and duodenum. Upon withdrawal, retroflexed and angulus views were obtained. Antral biopsies were obtained. I then slowly withdrew the endoscope. No evidence of Ying's. No evidence of peptic ulcers. The patient was then turned 180 degrees and placed in the Coe position. A digital rectal examination was performed. The prostate was enlarged, symmetric and without nodules. The prep was adequate. I slowly withdrew the endoscope. I irrigated and aspirated extensively. A combination of normal imaging and narrow band imaging were utilized. There was a flat polyp at 30 cm that can only be seen by narrow band imaging. This was removed in its entirety utilizing the hot biopsy forceps polypectomy technique. A retroflexed view was obtained in the rectum. It revealed enlarged internal hemorrhoids. The endoscope was then unretroflexed and removed under direct vision. The patient has enlarged external hemorrhoids as well as a number of very large skin tags. The erosions and the polyp could account for the patient's iron deficiency anemia. I am going to ensure that the patient is on a proton pump inhibitor. TRANSINT:[id number] Voice Confirmation ID: [id number] DOCUMENT ID: [id number] OPERATIVE REPORT [id number] BETHEL PENNINGTON ROBERT MD at 1740 CC: [id number] DICTATION DATE: 08/17/20 1232 AUTOMATIC SPLICING MACHINE OPERATOR: 08/17/207 [facility] 08/17/20 [id number] [place] [address]
== END 2020-08-17 13:28 | disposition home or self-care (01) ==
LOC: D.OPS 08:45
PROVIDERS: Anesthesiology; ATTEND Surgery
DX: D50.9 Iron deficiency anemia, unspecified (principal); K63.5 Polyp of colon; I25.2 Old myocardial infarction; I48.91 Unspecified atrial fibrillation; E03.9 Hypothyroidism, unspecified; N18.9 Chronic kidney disease, unspecified

== ENCOUNTER → 2021-01-27 20:09 | Outpatient (CLI) | payer BC ==
[~2021-01-27 20:09] MED LIST changes: +ARMOUR THYROID30 MG PO; +COREG12.5 MG
== END | disposition home or self-care (01) ==
LOC: D.MAMMO 15:00
PROVIDERS: ATTEND Family Medicine
DX: Z12.31 Encounter for screening mammogram for malignant neoplasm of breast (principal)